=== PATIENT | male | born 1940 | race Caucasian/White ===

== ENCOUNTER 2021-01-12 12:57 | Inpatient (IN) | payer OTHER ==
[2021-01-12] MEDS ORDERED: HYOSCYAMINE SULF 0.125 MG TAB SL PRN (20:16)
[2021-01-12] MEDS ORDERED: BISACODYL E.C. 5 MG TAB PO PRN (20:31)
[2021-01-12] MEDS ORDERED: DOCUSATE NA/SENNA CONC 1 TAB PO PRN (20:31)
[2021-01-12] MEDS ORDERED: DICYCLOMINE HCL 10 MG CAP PO PRN (20:31)
[2021-01-12] MEDS ORDERED: ONDANSETRON 4 MG (ODT) TAB PO PRN (20:31)
[2021-01-12] MEDS ORDERED: TAMSULOSIN 0.4 MG SR CAP PO SCH (21:00)
[2021-01-12] MEDS: HYDROCODONE/APAP 10/325 TAB PO PRN (21:14)
[2021-01-13] MEDS ORDERED: METOPROLOL XL 50 MG TAB PO SCH (06:00)
[2021-01-13] MEDS ORDERED: METOPROLOL XL 25 MG TAB PO SCH ×2 (06:00)
[2021-01-13 06:04] LABS: Absolute Lymphocytes (CBC) 2.8 K/uL (0.7-4.9); Basophils % 0.3 % (0-1.3); Hematocrit 27.7 % (39.6-49.0); Lymphocytes % 37.8 % (15.3-44.8); MPV 9.1 fL (7.6-11.3); RBC Red Blood Cell Count 2.82 M/uL (4.33-5.43)
[2021-01-13 06:09] LABS: Urine Appearance CLEAR (Clear); Urine Bilirubin NEGATIVE (Negative); Urine Blood 2+ (Negative); Urine Color YELLOW (Yellow); Urine Glucose NEGATIVE (Negative); Urine Protein TRACE (Negative); Urine Urobilinogen 0.2 mg/dL (0.2-1.0); Urine pH 6.5 (5.0-7.0)
[2021-01-13 06:29] LABS: Albumin 2.5 g/dL (3.4-5.0); Magnesium 1.9 mg/dL (1.8-2.4); Potassium 3.8 mmol/L (3.5-5.1); Prealbumin 16.7 mg/dL (20-40)
[2021-01-13] MEDS: PANTOPRAZOLE 40MG TABLET PO SCH (06:46)
[2021-01-13 07:51] LABS: Urine Bacteria <20 /HPF (NONE SEEN)
[2021-01-13] MEDS ORDERED: FENOFIBRATE 145 MG TAB PO SCH (08:00)
[2021-01-13] MEDS: HYDROCODONE/APAP 10/325 TAB PO PRN (08:08)
[2021-01-13] MEDS: AMLODIPINE 10 MG TAB PO SCH (08:08)
--- NOTE | 2021-01-13 08:11 | R.PREADM ---
PRE-ADMISSION SCREENING FORM SCREENING DATE AND TIME 01/12/2021 18:06 (CDT) ANTICIPATED REHAB ADMISSION DATE 01/13/2021 REFERRING FACILITY [facility] REFERRAL DATE AND TIME 01/12/2021 13:08 (CDT) REFERRAL OFFICE PHONE [phone] REFERRAL ROOM# [id number] ACUTE ADMIT DATE 01/07/2021 Previous Rehabilitation(s): No. 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 Clarence Hector M.D. MR# [id number] NAME SAMMIE SLATER ADDRESS [address] [facility] [place] PHONE [facility] [id number] DATE OF 1940 AGE 80 SSN# [id number] GENDER male MARITAL STATUS ADMIT FROM 02 - [facility] PRE-HOSPITAL LIVING SETTING 01 - Home (private home/apt. board/care, assisted living, usp, transitional living) HOME TYPE AND DETAILS Type of home: single family house # of steps within the residence: 0 # of levels in the residence: 1 # of steps to enter the residence: 0 PRE-HOSPITAL LIVING WITH Family/Relatives FAMILY SUPPORT Yes PRIMARY FAMILY CONTACT NAME JOSE SLATER PRIMARY FAMILY CONTACT PHONE PRIMARY FAMILY CONTACT RELATIONSHIP Spouse PHONE PRIMARY FAMILY CONTACT ON ADM.? no IS PRIMARY FAMILY CONTACT AUTH. REP.? no 1ST EMERGENCY CONTACT JOSE SLATER 1ST CONTACT PHONE 1ST CONTACT RELATIONSHIP Spouse PHONE 1ST CONTACT ON ADM. no IS 1ST CONTACT AUTH. REP.? no PHONE 2ND CONTACT ON ADM.? no PATIENT EMPLOYMENT STATUS Retired (for age) PATIENT EMPLOYER No Employer PAYOR INFORMATION: 1ST PAYOR NAME MEDICARE 1ST PAYOR PHONE 1ST PAYOR INJURY/ILLNESS DUE TO ACCIDENT? No ANOTHER [employer] RESPONSIBLE? No PRIMARY REHAB/ACUTE DIAGNOSIS: MULTIPLE MYELOMA ONSET DATE 01/07/2021 REHAB IMPAIRMENT CATEGORY (JANIA): 20 Miscellaneous (Misc) does NOT meet 60% rule PRIMARY DIAGNOSIS-RELATED SURGERIES: N/A RISK FOR COMPLICATIONS: - N/A BACTERIAL URINARY INFECTION CHRONIC KIDNEY DISEASE COGNITIVE IMPAIRMENTS SUMMARY OF ACUTE HOSPITALIZATION: Pt. is a 80 yo Right-handed male. On 01/07/2021 he was admitted to [facility] with diagnosis MULTIPLE MYELOMA. His impairment category is Medically Complex Conditions 17 - Neoplasms (17.2). Pre-morbidly, Pt. was independent/mod-I in Locomotion, Social Cognition, Safety Awareness, Transfers Control, and Balance; and he had good Endurance, Self-Care, Communication, and Sphincter Control. Currently, he has deficits of Locomotion, Balance, Safety Awareness, Transfers Control, Self-Care, Sp hincter Control, and Endurance. Pt. is now referred to [facility] for acute in-patient rehabilitation in order to maximize patient's functional independence in activities of daily living, strength, ROM, and mobi lity. Patient has realistic goal of being discharged at assistance level 7-Ind to reside at Home with Fami ly/Relatives. PAST MEDICAL HISTORY Other cholelithiasis with obstruction (K80.81) CHRONIC CONSTIPATION DEPRESSION DISORDER OF CORONARY ARTERY GASTROESOPHAGEAL REFLUX DISEASE HYPERLIPIDEMIA HYPERTENSION LOWER URINARY TRACT SYMPTOMS MULTIPLE MYELOMA OBSTRUCTIVE SLEEP APNEA ORTHOSTATIC HYPOTENSION FALLS PAST SURGICAL HISTORY: ABDOMINAL SURGERY DISCECTOMY, ANTERIOR CERVICAL W/FUSION FINGER AMPUTATION ( FROM HORSE INJURY) LAMINECTOMY MO EGD FLEXIBLE FOREIGN BODY REMOVAL MO ERCP STENT PLACEMENT BILARY/PANCREATIC MO LLANOS W/O FACETEC FORAMOT/[facility] 04/29 VRT SEG,THORACIC- BILATERAL SPLENECTOMY,TOTAL MEDICATION ALLERGIES: DAPTOMYCIN OXYCODONE ZOLPIDEM ENVIRONMENTAL ALLERGIES: - Substance Allergies None Known - Other Allergies None Known CODE STATUS: Full code WEIGHT/HEIGHT/BMI: WEIGHT 166 lbs BMI N/A DIET: - Diet Type Regular - Diet - Solid Texture Regular - Diet - Liquid Texture Regular - Tube Feed N/A REVIEW OF SYSTEMS: - Gen Alert and awake Lying in bed No apparent distress Oriented to: person, time, and place - Vital Signs Temperature: 98.3 F SBP/DBP: 166/93 Pulse: 79 Resp: 18 Vital signs stable, afebrile - CVS RRR VITAL SIGNS Temperature: 98.3 F SBP/DBP: 166/93 Pulse: 79 Resp: 18 Vital signs stable, afebrile MEDICATIONS/TREATMENT: Other- See attached MAR (Medication Administration Record). CURRENT SPHINCTER CONTROL: Pre-hospital bladder status: unspecified # of bladder accidents in the last 7 days prior to screenin Pre-hospital bowel status: unspecified # of bowel accidents in the last 7 days prior to screenin Last Bowel Movement Date: 01/12/2021 CURRENT LOCOMOTION STATUS: distance walked 15 feet ROLLING WALKER DETAILED CURRENT FUNCTIONAL STATUS: - Bladder accident frequency: 7-Ind - No accidents in the past 7 days - Bowel accident frequency: 7-Ind - No accidents in the past 7 days - Walking score based on distance walked: 0(N/A) score based on distance walked: 1(<=50ft) - Wheelchair score based on distance traveled: 0(N/A) QI SCORES: - Self-Care A. Eating 03-Partial/moderate assistance B. Oral hygiene 03-Partial/moderate assistance C. Toileting hygiene 03-Partial/moderate assistance E. Shower/bathe self 03-Partial/moderate assistance F. Upper body dressing 04-Supervision or touching assistance G. Lower body dressing 03-Partial/moderate assistance H. Putting on/taking off footwear 88-Not attempted due to medical condition or safety concerns - Mobility A. Roll left and right 03-Partial/moderate assistance B. Sit to lying 04-Supervision or touching assistance C. Lying to sitting on side of bed 04-Supervision or touching assistance D. Sit to stand 03-Partial/moderate assistance E. Chair/rlv-vm-lfxmp transfer 03-Partial/moderate assistance F. Toilet transfer 03-Partial/moderate assistance G. Car transfer 88-Not attempted due to medical condition or safety concerns I. Walk 10 feet 03-Partial/moderate assistance J. Walk 50 feet with two turns 88-Not attempted due to medical condition or safety concerns K. Walk 150 feet 88-Not attempted due to medical condition or safety concerns L. Walking 10 feet on uneven surfaces 88-Not attempted due to medical condition or safety concerns M. 1 step (curb) 88-Not attempted due to medical condition or safety concerns N. 4 steps 88-Not attempted due to medical condition or safety concerns O. 12 steps 88-Not attempted due to medical condition or safety concerns P. Picking up object 88-Not attempted due to medical condition or safety concerns R. Wheel 50 feet with two turns 88-Not attempted due to medical condition or safety concerns S. Wheel 150 feet 88-Not attempted due to medical condition or safety concerns - Bladder and Bowel Bladder continence Bowel continence - Endurance Fair - Balance Fair - Safety Awareness Fair CURRENT FUNC. DEFICITS: Self-Care, Mobility, Endurance, Balance, and Safety Awareness CURRENT / PREVIOUS ASSISTIVE DEVICES: Rolling Walker HISTORY OF FALLS. HAS THE PATIENT HAD TWO OR MORE FALLS IN THE PAST YEAR OR ANY FALL WITH INJURY IN T HE PAST YEAR?: Yes PRIOR SURGERY. DID THE PATIENT HAVE MAJOR SURGERY DURING THE 100 DAYS PRIOR TO ADMISSION?: No THERAPY NOTES FROM ACUTE CARE: Attached. SPECIAL NEEDS: - Safety Concerns Skin breakdown precautions needed due to skin breakdown risk PRECAUTIONS: - Fall Precaution SAFTY AND FALL PATIENT NEEDS ACTIVE AND ONGOING THERAPEUTIC INTERVENTION OF MULTIPLE THERAPY DISCIPLINES, INCLUDING: - Dietary and Nutrition Adequate Nutrition. Nutritional Education. Nutritional Supplements. - Occupational Therapy Cognitive Retraining. Evaluate and Treat. Adaptive Equipment. Transfer Training. UE Strengthening. AD L Training. Visual Perceptual Training. - Speech Therapy Cognitive Training. Expressive Language Skills. Memory Strategies. Receptive Language Skills. Speech Intelligibility Training. - Physical Therapy Evaluate and Treat. Gait Training. Transfer Training. Balance Training. Mobility Training. HUEY william. PATIENT NEEDS CLOSE MEDICAL SUPERVISION BY A REHABILITATION PHYSICIAN FOR: Coordination of Treatment Team Pain Management Medical and Co-Morbidity Management PATIENT REQUIRES 24X7 REHAB NURSING FOR MEDICAL AND FUNCTIONAL MGT. OF THE FOLLOWING DEFICITS: Disease Management Medication Management Patient/Family Education Providing Safe Environment PATIENT REQUIRES INTENSIVE, COORDINATED INTERDISCIPLINARY APPROACH TO REHAB: Arranging Home Equipment/Services Discharge Planning Family Intervention/Training Optical Goods Worker/Case Management PATIENT REHAB POTENTIAL: Tania SLATER is able and expected to receive 3 hours of individualized therapy daily on at least 5 of every 7 days Tania SLATER's prognosis for significant practical improvement within a reasonable period of time martine ears Good Expected level of measurable improvement will be of a practical value to Tania SLATER's functional ca pacity or adaptations to impairments Has a viable Discharge Plan Medically appropriate; condition is sufficiently stable to participate in intensive rehab program DISCHARGE PLAN: - Estimated Length of Stay (days) 13. - Consensus on plan Discharge plan has been discussed with primary caregiver. Patient/Family is in agreement with the christina n. Primary caregiver is in agreement with the plan. - Patient/Family Goals Return home independently. - Planned Living Setting Upon Discharge Home, to live with Family/Relatives. Transitional Living. RECOMMENDED CARE LEVEL: IRF RECOMMENDATION DETAILS: Recommended Admission to Comprehensive Rehabilitation Program to Increase Functional Isabela SCREENER'S COMPLETENESS CONFIRMATION: - Screening Confirmation The patient data collection on this preadmission screening form is finished PHYSICIANS REVIEW AND ADMISSION DETERMINATION Admit - Based on my review of the Pre-Admission Screening results, in my medical judgment and experie nce, I concur with the findings and recommend admission to [facility], as this patient requires an IRF level of care. SIGNATURE PANEL: [place] - [electronically] signed by Doc Inman on 01/12/2021 at 15:23 (CDT) [place] - [electronically] signed by Mauro Flores PT on 01/12/2021 at 15:49 (CDT) Physician Reviewer - [electronically] signed by Dr. Clarence Hector M.D. on 01/13/2021 at 08:10 (CDT )
[2021-01-13] MEDS: FENOFIBRATE 160 MG TAB PO SCH (08:18)
[2021-01-13] MEDS: OXYBUTYNIN CHLORIDE 5 MG TAB PO SCH (08:18)
[2021-01-13] MEDS: MONTELUKAST 10 MG TAB PO SCH (08:18)
[2021-01-13] MEDS: ACYCLOVIR 400 MG TABLET PO SCH ×2 (08:19→20:00)
[2021-01-13] MEDS: CYANOCOBALAMIN 1,000 MCG TAB PO SCH (08:19)
[2021-01-13] MEDS: ASPIRIN 81 MG CHEWABLE TABLET PO SCH (08:19)
[2021-01-13] MEDS: GABAPENTIN 300 MG CAP PO SCH ×2 (08:19→20:10)
[2021-01-13] MEDS: THIAMINE HCL 100 MG TABLET PO SCH (08:19)
[2021-01-13] MEDS: APIXABAN 2.5 MG TABLET PO SCH ×2 (09:58→20:10)
[2021-01-13] MEDS: LIDOCAINE 4% PATCH TOP SCH (09:59)
[2021-01-13] MEDS: OCUVITE (VIT A,C & E/LUTEIN/MINERAL) TABLET PO SCH ×2 (10:16→20:37)
[2021-01-13] MEDS: TRAMADOL HCL 50 MG TAB PO PRN ×2 (12:06→20:11)
--- NOTE | 2021-01-13 16:51 | R.HP ---
HISTORY AND PHYSICAL FACILITY: [facility] ENCOUNTER DATE AND TIME: 01/13/2021 16:47 (CDT) MR#: [id number] NAME SAMMIE SLATER ADDRESS: [address] [place] [address] [address] CITY: [place] [address] [id number] PHONE: DATE OF : 1940 AGE: 80 SSN# [id number] GENDER: Male MARITAL STATUS PRE-HOSPITAL LIVING SETTING 01 - Home (private home/apt. board/care, assisted living, skilled nursing, transitional living) PRE-HOSPITAL LIVING WITH Family/Relatives ENCOUNTER PHYSICIAN: Dr. Clarence Hector M.D. REFERRING DOCTOR: BENIGNO HASSAN MD DATE OF ADMISSION: 01/12/2021 20:04 (CDT) REFERRING FACILITY [facility] PRIMARY CARE PHYSICIAN BENIGNO HASSAN MD HOME TYPE AND DETAILS: Type of home: single family house # of steps within the residence: 0 # of levels in the residence: 1 # of steps to enter the residence: 0 ONSET DATE: 01/07/2021 PRIMARY DIAGNOSIS-RELATED SURGERIES: N/A Multiple myeloma, debility HISTORY OF PRESENT ILLNESS (HPI): Pt. is a 80 yo Right-handed male. On 01/07/2021 he was admitted to [facility] with diagnosis MULTIPLE MYELOMA. His impairment category is Medically Complex Conditions 17 - Neoplasms (17.2). Pre-morbidly, Pt. was independent/mod-I in Locomotion, Social Cognition, Safety Awareness, Transfers Control, and Balance; and he had good Endurance, Self-Care, Communication, and Sphincter Control. Currently, he has deficits of Locomotion, Balance, Safety Awareness, Transfers Control, Self-Care, Sp hincter Control, and Endurance. Pt. is now referred to [facility] for acute in-patient rehabilitation in order to maximize patient's functional independence in activities of daily living, strength, ROM, and mobi lity. Patient has realistic goal of being discharged at assistance level 7-Ind to reside at Home with Fami ly/Relatives. MEDICATION ALLERGIES: DAPTOMYCIN OXYCODONE ZOLPIDEM ENVIRONMENTAL ALLERGIES: - Substance Allergies None Known - Other Allergies None Known PAST MEDICAL HISTORY: Other cholelithiasis with obstruction (K80.81) CHRONIC CONSTIPATION DEPRESSION DISORDER OF CORONARY ARTERY GASTROESOPHAGEAL REFLUX DISEASE HYPERLIPIDEMIA HYPERTENSION LOWER URINARY TRACT SYMPTOMS MULTIPLE MYELOMA OBSTRUCTIVE SLEEP APNEA ORTHOSTATIC HYPOTENSION FALLS PAST SURGICAL HISTORY: ABDOMINAL SURGERY DISCECTOMY, ANTERIOR CERVICAL W/FUSION FINGER AMPUTATION ( FROM HORSE INJURY) LAMINECTOMY [place] EGD FLEXIBLE FOREIGN BODY REMOVAL [place] ERCP STENT PLACEMENT BILARY/PANCREATIC [place] LLANOS W/O FACETEC FORAMOT/[facility] / VRT SEG,THORACIC- BILATERAL SPLENECTOMY,TOTAL SOCIAL HISTORY: - Home Living Family/Relatives REVIEW OF SYSTEMS: - Gen No Chills Fatigue No Fever - Eyes No Double Vision No itchiness - ENMT No Difficulty Swallowing - CVS No Chest Discomfort No Chest Pain No Fatigue No Weight Gain - Resp No Cough Shortness of Breath - GI Continent No Abdominal Pain No Constipation No Diarrhea - Continent No Kidney Pain No Painful Urination No Urinary Urgency - MSK No Joint Pain Muscle Cramps Stiffness - Skin No Itching No Rash No Suspicious Lesions - Neuro Coordination Difficulty No Difficulty with Concentration No Memory Loss No Seizures Weakness - Psych No Anxiety No Depression No HIV Exposure No Persistent Infections No Seasonal Allergies - Endo No Cold/Heat Intolerance No Excessive Hunger No Excessive Thirst No Excessive Urination PHYSICAL EXAM - Gen Alert and awake Lying in bed No apparent distress Oriented to: person, time, and place - Skin No skin breakdown. No abnormalities - Eyes No abnormalities - ENMT No abnormalities - Neck No abnormalities - CVS RRR - Chest No abnormalities - Resp Clear to auscultation - Abd Soft - GI Non distended Deferred - No abnormalities - Ext No significant edema - MSK 4+/5 weakness in both lower extremities. - Neuro No focal deficits - Psych No abnormalities VITAL SIGNS Temperature: 98.8 F SBP/DBP: 145/75 Pulse: 66 Resp: 16 NURSING: - Shower allowing shower PRECAUTIONS: - Fall Precaution SAFTY AND FALL ACTIVITIES OOB only with supervision QI SCORES: - Self-Care A. Eating 03-Partial/moderate assistance B. Oral hygiene 03-Partial/moderate assistance C. Toileting hygiene 03-Partial/moderate assistance E. Shower/bathe self 03-Partial/moderate assistance F. Upper body dressing 04-Supervision or touching assistance G. Lower body dressing 03-Partial/moderate assistance H. Putting on/taking off footwear 88-Not attempted due to medical condition or safety concerns - Mobility A. Roll left and right 03-Partial/moderate assistance B. Sit to lying 04-Supervision or touching assistance C. Lying to sitting on side of bed 04-Supervision or touching assistance D. Sit to stand 03-Partial/moderate assistance E. Chair/qmr-wx-csyic transfer 03-Partial/moderate assistance F. Toilet transfer 03-Partial/moderate assistance G. Car transfer 88-Not attempted due to medical condition or safety concerns I. Walk 10 feet 03-Partial/moderate assistance J. Walk 50 feet with two turns 88-Not attempted due to medical condition or safety concerns K. Walk 150 feet 88-Not attempted due to medical condition or safety concerns L. Walking 10 feet on uneven surfaces 88-Not attempted due to medical condition or safety concerns M. 1 step (curb) 88-Not attempted due to medical condition or safety concerns N. 4 steps 88-Not attempted due to medical condition or safety concerns O. 12 steps 88-Not attempted due to medical condition or safety concerns P. Picking up object 88-Not attempted due to medical condition or safety concerns R. Wheel 50 feet with two turns 88-Not attempted due to medical condition or safety concerns S. Wheel 150 feet 88-Not attempted due to medical condition or safety concerns - Bladder and Bowel Bladder continence Bowel continence - Endurance Fair - Balance Fair - Safety Awareness Fair CURRENT FUNC. DEFICITS: Self-Care, Mobility, Endurance, Balance, and Safety Awareness MEDICATIONS: - Other See attached MAR (Medication Administration Record) ASSESSMENT: Pt. is a 80 yo Right-handed male.On 01/07/2021 he was admitted to [facility] with diagnosis MULTIPLE MYELOMA.His impairment category is Medically Complex Conditions 17 - Neoplasms (17.2).Pre-morbidly, Pt. was independent/mod-I in Locomotion, Social Cognition, Safety Awareness, Transfers Control, and Balance; and he had good Endurance, Self-Care, Communication, and Sphincter Control.Currently, he has deficits of Locomotion, Balance, Safety Awareness, Transfers Control, Self-Care, Sphincter Control, and Endurance.Pt. is now referred to [facility] for acute in-patient rehabilit ation in order to maximize patient's functional independence in activities of daily living, strength, ROM, and mobility.- Rehab Goal Patient has realistic goal of being discharged at assistance level 7-Ind to reside at Home with Fami ly/Relatives. - Physical Therapy Gait dysfunction - to improve, our physical therapists will perform initial evaluation of pt's status upon admission and devise an individualized program for Gait Training, and Wheel Chair mobility Inability to transfer - to improve, our physical therapists will perform initial evaluation of pt's s tatus upon admission and devise an individualized program for Bed mobility Need for home safety evaluation - to improve, our physical therapists will perform initial evaluation of pt's status upon admission and devise an individualized program for Home Evaluation Need in caregiver upon discharge - to improve, our physical therapists will perform initial evaluatio n of pt's status upon admission and devise an individualized program for Caregiver Training New precaution - to improve, our physical therapists will perform initial evaluation of pt's status u leeann admission and devise an individualized program for Patient precaution education Edema - to improve, our physical therapists will perform initial evaluation of pt's status upon admi ssion and devise an individualized program for Elevation Training, and Lymphedema Therapy Poor balance - to improve, our physical therapists will perform initial evaluation of pt's status upo n admission and devise an individualized program for Balance Training Poor endurance - to improve, our physical therapists will perform initial evaluation of pt's status u leeann admission and devise an individualized program for Endurance Training Weakness - to improve, our physical therapists will perform initial evaluation of pt's status upon ad mission and devise an individualized program for Aquatic Therapy, Neuromuscular Reeducation, and Stre ngthening Achieving independence - to improve, our physical therapists will perform initial evaluation of pt's status upon admission and devise an individualized program for Community Reintegration Activities - Occupational Therapy ADL deficits - to improve, our occupation therapists will perform initial evaluation of pt's status u leeann admission and devise an individualized program for Bathing, Bed mobility, Community Reintegration , Cooking, Dressing, Eating, Fine Motor Skills, Grooming, Homemaking, Kitchen Mobility, Laundry, [place] ent Education, Safety Awareness, Splinting - Positioning, Transfers(Toilet, Tub, Shower), and Wheel C hair Management Need for career guidance technician - to improve, our occupation therapists will perform initial evaluation of pt's s tatus upon admission and devise an individualized program for Caregiver Training Weakness - to improve, our occupation therapists will perform initial evaluation of pt's status upon admission and devise an individualized program for Aquatic Therapy, Balance, Endurance, UE ROM, and U E strengthening MEDICAL PLAN: - Diet Type Start Regular - Diet - Liquid Texture Start Regular - Tube Feed Start N/A - Fall Precaution SAFTY AND FALL - Other See attached MAR (Medication Administration Record) - Diet - Solid Texture Regular - Shower shower DISCHARGE PLAN: - Estimated Length of Stay (days) 13. - Consensus on plan Discharge plan has been discussed with primary caregiver. Patient/Family is in agreement with the christina n. Primary caregiver is in agreement with the plan. - Patient/Family Goals Return home independently. - Planned Living Setting Upon Discharge Home, to live with Family/Relatives. Transitional Living. SIGNATURE PANEL: (CDT)
--- NOTE | 2021-01-13 16:53 | PAPE ---
POST ADMISSION PHYSICIAN EVALUATION PATIENT: [facility] MR# [id number] REFERRING DOCTOR BENIGNO HASSAN MD PRIMARY CARE PHYSICIAN BENIGNO HASSAN MD EVALUATION DATE AND TIME 01/13/2021 16:51 (CDT) NAME SAMMIE SLATER DATE OF 1940 AGE 80 PHONE N# [id number] GENDER male EVALUATING PHYSICIAN Dr. Clarence Hector M.D. ADMISSION DIAGNOSIS: MULTIPLE MYELOMA ONSET DATE 01/07/2021 POST-ADMISSION FUNCTIONAL/MEDICAL STATUS: - Bladder Same accident frequency: 7-Ind - No accidents in the past 7 days - Bowel Same accident frequency: 7-Ind - No accidents in the past 7 days - Walking Same score based on distance walked: 0(N/A) Same score based on distance walked: 1(<=50ft) - Wheelchair Same score based on distance traveled: 0(N/A) STATUS CHANGE EVALUATION: No change in Functional or Medical Status is identified compared with Pre-Admission screening. PATIENT NEEDS CLOSE MEDICAL SUPERVISION BY A REHABILITATION PHYSICIAN FOR: Coordination of Treatment Team Pain Management Medical and Co-Morbidity Management PATIENT REQUIRES 24X7 REHAB NURSING FOR MEDICAL AND FUNCTIONAL MGT. OF THE FOLLOWING DEFICITS: Disease Management Medication Management Patient/Family Education Providing Safe Environment PATIENT REQUIRES INTENSIVE, COORDINATED INTERDISCIPLINARY APPROACH TO REHAB: Arranging Home Equipment/Services Discharge Planning Family Intervention/Training Licensed Nuclear Control Room Operator/Case Management LIST OF IDENTIFIED AND POTENTIAL PROBLEMS: Alteration in leisure activities Bladder, Incontinence Bowel, Incontinence Infection, Actual or Potential Mobility Impaired Pain, Alteration in Comfort Self Care Deficit Skin Integrity, Actual or Potential Urinary Tract Infection (UTI), Actual or Potential RISK FOR COMPLICATIONS - N/A BACTERIAL URINARY INFECTION. CHRONIC KIDNEY DISEASE. COGNITIVE IMPAIRMENTS. PATIENT COULD BE AT RISK FOR COMPLICATIONS FROM ADVERSE MEDICAL CONDITIONS DUE TO HIS/HER COMORBIDITI ES AND THE RIGORS OF THE INTENSIVE REHABILLITATION PROGRAM. METHODS OR INTERVENTIONS TO AVOID COMPLIC ATIONS INCLUDE: - Infection Clinical staff to assess and manage the signs and symptoms of infection including fever, redness, war mth, etc. - Urinary Tract Infection - Falls Patient will be evaluated for Fall Precautions and will be placed on Fall Precautions as indicated pe r protocol. - Skin Breakdown Nursing will assess skin daily using assessment tool and will place on Skin Breakdown Precautions as indicated per protocol. - Pain Clinical staff may employ non-medication methods such as massage, distraction, decrease stimulus, etc . as needed. Clinical staff will assess patient's pain level every shift per protocol to assess and e nsure pain management effectiveness. Medications will be given and the pain level re-assessed. PRELIMINARY PLAN OF CARE: - Physical Therapy Patient needs Physical Therapy for a daily minimum of 1.5 hours at least 5 out of 7 days, to improve: Mobility, Strengthening, Transfers, Stretching, ROM, Endurance, Ability to manage stairs, Gait, and Balance. - Speech Therapy Patient needs Speech Therapy for a daily minimum of 0.5 hours at least 5 out of 7 days, to improve: S wallowing, Cognition, Language Skills, and Compensatory Strategies. - Rehabilitation Nursing Patient requires 24x7 Rehabilitation Nursing for: Pain Issues, Identifying and preventing risk factor s, Monitoring and reporting current medical conditions, Assisting with ambulation and transfer, Mallika ting with all ADL-s, Teaching patients about disease process and medications, Family teaching, Provid ing safe environment, Bowel and Bladder Issues, Skin Integrity, and Medication Management. Patient needs Licensed Nuclear Control Room Operator and/or Case Management for: Discharge Planning, Arranging Home Equipmen t or Services, and Family Interventions. - Dietary and Nutrition Services Patient needs Dietary and Nutrition Services for: Adequate Nutrition, Nutritional Supplements, and Nu tritional Education. - Occupational Therapy Patient needs Occupational Therapy for a daily minimum of 1.5 hours at least 5 out of 7 days, to impr ove Activities of Daily Living, including: Eating, Grooming, Bathing, Dressing, Toileting, Toilet Tra nsfers, Community Reintegration, Higher functional activities, Adaptive Equipment, Splinting, Househo ld Tasks, and Other activities as determined. QI SCORES: - Self-Care A. Eating 03-Partial/moderate assistance B. Oral hygiene 03-Partial/moderate assistance C. Toileting hygiene 03-Partial/moderate assistance E. Shower/bathe self 03-Partial/moderate assistance F. Upper body dressing 04-Supervision or touching assistance G. Lower body dressing 03-Partial/moderate assistance H. Putting on/taking off footwear 88-Not attempted due to medical condition or safety concerns - Mobility A. Roll left and right 03-Partial/moderate assistance B. Sit to lying 04-Supervision or touching assistance C. Lying to sitting on side of bed 04-Supervision or touching assistance D. Sit to stand 03-Partial/moderate assistance E. Chair/[id number]-[id number] transfer 03-Partial/moderate assistance F. Toilet transfer 03-Partial/moderate assistance G. Car transfer 88-Not attempted due to medical condition or safety concerns I. Walk 10 feet 03-Partial/moderate assistance J. Walk 50 feet with two turns 88-Not attempted due to medical condition or safety concerns K. Walk 150 feet 88-Not attempted due to medical condition or safety concerns L. Walking 10 feet on uneven surfaces 88-Not attempted due to medical condition or safety concerns M. 1 step (curb) 88-Not attempted due to medical condition or safety concerns N. 4 steps 88-Not attempted due to medical condition or safety concerns O. 12 steps 88-Not attempted due to medical condition or safety concerns P. Picking up object 88-Not attempted due to medical condition or safety concerns R. Wheel 50 feet with two turns 88-Not attempted due to medical condition or safety concerns S. Wheel 150 feet 88-Not attempted due to medical condition or safety concerns - Bladder and Bowel Bladder continence Bowel continence - Endurance Fair - Balance Fair - Safety Awareness Fair POTENTIAL FUNCTIONAL GOALS FOR PATIENT TO ACHIEVE BY DISCHARGE: - Safety Precaution Patient will remain free from falls or injury at time of discharge. - Bed Mobility Patient will perform bed mobility at 4-Marisol level of assistance. - Transfers Patient will complete transfers from bed to chair at 4-Marisol level of assistance. - Mobility Patient will ambulate 150 ft with 4-Marisol level of assistance with RW. PATIENT REHAB POTENTIAL Tania SLATER is able and expected to receive 3 hours of individualized therapy daily on at least 5 of every 7 days Tania SLATER's prognosis for significant practical improvement within a reasonable period of time martine ears Good Expected level of measurable improvement will be of a practical value to Tania SLATER's functional ca pacity or adaptations to impairments Has a viable Discharge Plan Medically appropriate; condition is sufficiently stable to participate in intensive rehab program DISCHARGE PLAN: - Estimated Length of Stay (days) 13. - Consensus on plan Discharge plan has been discussed with primary caregiver. Patient/Family is in agreement with the christina n. Primary caregiver is in agreement with the plan. - Patient/Family Goals Return home independently. - Planned Living Setting Upon Discharge Home, to live with Family/Relatives. Transitional Living. CONCLUSION ON REHABILITATION NECESSITY: I have evaluated patient's pre-admission functional status and, comparing it to the patient's post-ad mission functional status now, I conclude that the pre-admission assessment was accurate. Patient's c ondition on admission supports the medical necessity of admission to IRF. It is safe to proceed with patient's therapy program. SIGNATURE PANEL: (CDT)
[2021-01-13] MEDS: METOPROLOL XL 25 MG TAB PO SCH (17:19)
[2021-01-13] MEDS: ENSURE HIGH PROTEIN 237 ML CAN PO SCH (20:00)
[2021-01-13] MEDS: CRANBERRY FRUIT EXTRACT 400 MG CAP PO SCH (20:10)
[2021-01-13] MEDS: MELATONIN 3 MG TABLET PO PRN (20:12)
[2021-01-13] MEDS: TAMSULOSIN 0.4 MG SR CAP PO SCH (20:12)
[2021-01-14] MEDS: METOPROLOL XL 25 MG TAB PO SCH ×2 (04:54→17:10)
[2021-01-14] MEDS: PANTOPRAZOLE 40MG TABLET PO SCH (06:25)
[2021-01-14] MEDS: LIDOCAINE 4% PATCH TOP SCH (06:59)
[2021-01-14] MEDS: CRANBERRY FRUIT EXTRACT 400 MG CAP PO SCH ×2 (08:12→19:15)
[2021-01-14] MEDS: GABAPENTIN 300 MG CAP PO SCH ×2 (08:12→19:15)
[2021-01-14] MEDS: FENOFIBRATE 160 MG TAB PO SCH (08:12)
[2021-01-14] MEDS: THIAMINE HCL 100 MG TABLET PO SCH (08:13)
[2021-01-14] MEDS: ASPIRIN 81 MG CHEWABLE TABLET PO SCH (08:13)
[2021-01-14] MEDS: APIXABAN 2.5 MG TABLET PO SCH ×2 (08:13→19:15)
[2021-01-14] MEDS: ACYCLOVIR 400 MG TABLET PO SCH ×2 (08:13→19:15)
[2021-01-14] MEDS: CYANOCOBALAMIN 1,000 MCG TAB PO SCH (08:13)
[2021-01-14] MEDS: AMLODIPINE 10 MG TAB PO SCH (08:13)
[2021-01-14] MEDS: OXYBUTYNIN CHLORIDE 5 MG TAB PO SCH (08:13)
[2021-01-14] MEDS: TRAMADOL HCL 50 MG TAB PO PRN ×2 (08:15→19:16)
[2021-01-14] MEDS: ENSURE HIGH PROTEIN 237 ML CAN PO SCH ×2 (08:16→19:18)
[2021-01-14] MEDS: MONTELUKAST 10 MG TAB PO SCH (08:17)
[2021-01-14] MEDS: OCUVITE (VIT A,C & E/LUTEIN/MINERAL) TABLET PO SCH ×2 (09:17→19:15)
[2021-01-14] MEDS: TAMSULOSIN 0.4 MG SR CAP PO SCH (19:15)
[2021-01-14] MEDS: MELATONIN 3 MG TABLET PO PRN (19:15)
[2021-01-15] MEDS: METOPROLOL XL 25 MG TAB PO SCH ×2 (05:11→17:05)
[2021-01-15] MEDS: PANTOPRAZOLE 40MG TABLET PO SCH (06:58)
[2021-01-15] MEDS: GABAPENTIN 300 MG CAP PO SCH ×3 (08:00→21:54)
[2021-01-15] MEDS: LIDOCAINE 4% PATCH TOP SCH (08:00)
[2021-01-15] MEDS: CRANBERRY FRUIT EXTRACT 400 MG CAP PO SCH ×2 (09:11→21:53)
[2021-01-15] MEDS: FENOFIBRATE 160 MG TAB PO SCH (09:12)
[2021-01-15] MEDS: MONTELUKAST 10 MG TAB PO SCH (09:12)
[2021-01-15] MEDS: OXYBUTYNIN CHLORIDE 5 MG TAB PO SCH (09:12)
[2021-01-15] MEDS: ASPIRIN 81 MG CHEWABLE TABLET PO SCH (09:12)
[2021-01-15] MEDS: AMLODIPINE 10 MG TAB PO SCH (09:12)
[2021-01-15] MEDS: ACYCLOVIR 400 MG TABLET PO SCH ×2 (09:12→21:54)
[2021-01-15] MEDS: APIXABAN 2.5 MG TABLET PO SCH ×2 (09:13→21:53)
[2021-01-15] MEDS: CYANOCOBALAMIN 1,000 MCG TAB PO SCH (09:13)
[2021-01-15] MEDS: THIAMINE HCL 100 MG TABLET PO SCH (09:13)
[2021-01-15] MEDS ORDERED: GABAPENTIN 100 MG CAP ONE (09:35)
[2021-01-15] MEDS: TRAMADOL HCL 50 MG TAB PO PRN ×2 (10:02→21:54)
[2021-01-15] MEDS: OCUVITE (VIT A,C & E/LUTEIN/MINERAL) TABLET PO SCH ×2 (10:03→21:54)
[2021-01-15] MEDS: ENSURE HIGH PROTEIN 237 ML CAN PO SCH ×2 (11:31→21:55)
--- NOTE | 2021-01-15 17:21 | R.PN ---
PROGRESS NOTES ENCOUNTER DATE AND TIME: 01/15/2021 17:14 (CDT) NAME SAMMIE SLATER DATE OF : 1940 DATE OF ADMISSION: 01/12/2021 20:04 (CDT) MULTIPLE MYELOMACHIEF COMPLAINT: Debility and multiple myeloma SUBJECTIVE: Pt denied any depression. Pt denied any Shortness of Breath. Ambulated 500' with standby assistance using a rolling walker. VITAL SIGNS Temperature: 99.2 F SBP/DBP: 160/80 Pulse: 70 Resp: 16 MEDICATION ALLERGIES: DAPTOMYCIN OXYCODONE ZOLPIDEM ENVIRONMENTAL ALLERGIES: - Substance Allergies None Known - Other Allergies None Known NURSING: - Shower allowing shower PRECAUTIONS: - Fall Precaution SAFTY AND FALL ACTIVITIES OOB only with supervision THERAPIES: - Dietary and Nutrition Adequate Nutrition. Nutritional Education. Nutritional Supplements. - Occupational Therapy Cognitive Retraining. Evaluate and Treat. Adaptive Equipment. Transfer Training. UE Strengthening. AD L Training. Visual Perceptual Training. - Speech Therapy Cognitive Training. Expressive Language Skills. Memory Strategies. Receptive Language Skills. Speech Intelligibility Training. - Physical Therapy Evaluate and Treat. Gait Training. Transfer Training. Balance Training. Mobility Training. HUEY william. PHYSICAL EXAM - Gen Alert and awake Lying in bed No apparent distress Oriented to: person, time, and place - Skin No skin breakdown. No abnormalities - Eyes No abnormalities - ENMT No abnormalities - Neck No abnormalities - CVS RRR - Chest No abnormalities - Resp Clear to auscultation - Abd Soft - GI Non distended Deferred - No abnormalities - Ext No significant edema - MSK 4+/5 weakness in both lower extremities. - Neuro No focal deficits - Psych No abnormalities ASSESSMENT: Pt. is a 80 yo Right-handed male.On 01/07/2021 he was admitted to [facility] with diagnosis MULTIPLE MYELOMA.His impairment category is Medically Complex Conditions 17 - Neoplasms (17.2).Pre-morbidly, Pt. was independent/mod-I in Locomotion, Social Cognition, Safety Awareness, Transfers Control, and Balance; and he had good Endurance, Self-Care, Communication, and Sphincter Control.Currently, he has deficits of Locomotion, Balance, Safety Awareness, Transfers Control, Self-Care, Sphincter Control, and Endurance.Pt. is now referred to [facility] for acute in-patient rehabilit ation in order to maximize patient's functional independence in activities of daily living, strength, ROM, and mobility.- Rehab Goal Patient has realistic goal of being discharged at assistance level 7-Ind to reside at Home with Fami ly/Relatives. MDM/PLAN: - Physical Therapy Gait dysfunction - to improve, our physical therapists will perform initial evaluation of pt's statu s upon admission and devise an individualized program for Gait Training, and Wheel Chair mobility Inability to transfer - to improve, our physical therapists will perform initial evaluation of pt's status upon admission and devise an individualized program for Bed mobility Need for home safety evaluation - to improve, our physical therapists will perform initial evaluatio n of pt's status upon admission and devise an individualized program for Home Evaluation Need in caregiver upon discharge - to improve, our physical therapists will perform initial evaluati on of pt's status upon admission and devise an individualized program for Caregiver Training New precaution - to improve, our physical therapists will perform initial evaluation of pt's status upon admission and devise an individualized program for Patient precaution education Edema - to improve, our physical therapists will perform initial evaluation of pt's status upon admis matthew and devise an individualized program for Elevation Training, and Lymphedema Therapy Poor balance - to improve, our physical therapists will perform initial evaluation of pt's status up on admission and devise an individualized program for Balance Training Poor endurance - to improve, our physical therapists will perform initial evaluation of pt's status upon admission and devise an individualized program for Endurance Training Weakness - to improve, our physical therapists will perform initial evaluation of pt's status upon a dmission and devise an individualized program for Aquatic Therapy, Neuromuscular Reeducation, and Str engthening Achieving independence - to improve, our physical therapists will perform initial evaluation of pt's status upon admission and devise an individualized program for Community Reintegration Activities - Occupational Therapy ADL deficits - to improve, our occupation therapists will perform initial evaluation of pt's status upon admission and devise an individualized program for Bathing, Bed mobility, Community Reintegratio n, Cooking, Dressing, Eating, Fine Motor Skills, Grooming, Homemaking, Kitchen Mobility, Laundry, Pat ient Education, Safety Awareness, Splinting - Positioning, Transfers(Toilet, Tub, Shower), and Wheel Chair Management Need for patient care technician - to improve, our occupation therapists will perform initial evaluation of pt's status upon admission and devise an individualized program for Caregiver Training Weakness - to improve, our occupation therapists will perform initial evaluation of pt's status upon admission and devise an individualized program for Aquatic Therapy, Balance, Endurance, UE ROM, and UE strengthening - Other See attached MAR (Medication Administration Record) - Diet Type Continue Regular - Diet - Liquid Texture Continue Regular - Tube Feed Continue N/A - Fall Precaution SAFTY AND FALL - Diet - Solid Texture Continue Regular - Shower allowing shower FUNCTIONAL STATUS: UPDATED AT WEEKLY TEAM CONFERENCE - Bladder Same accident frequency: 7-Ind - No accidents in the past 7 days - Bowel Same accident frequency: 7-Ind - No accidents in the past 7 days - Walking Same score based on distance walked: 0(N/A) Same score based on distance walked: 1(<=50ft) - Wheelchair Same score based on distance traveled: 0(N/A) FUNCTIONAL STATUS: - Self-Care A. Eating Ind B. Grooming sup C. Bathing Marisol D. Dressing - Upper Marisol E. Dressing - Lower modA F. Toileting Marisol - Sphincter Control G. Bladder control sup H. Bowel control sup - Transfers Control I. Bed/Chair/Wheelchair Marisol J. Toilet Marisol K. Tub/Shower Marisol - Locomotion L. Walk/Wheelchair (B) modA M. Stairs ADNO - Communication N. Comprehension (B) sup O. Expression (B) sup - Social Cognition P. Social Interaction Sofia Q. Problem Solving sup R. Memory sup - Endurance Fair - Balance Fair - Safety Awareness Fair QI SCORES: - Self-Care A. Eating 03-Partial/moderate assistance B. Oral hygiene 03-Partial/moderate assistance C. Toileting hygiene 03-Partial/moderate assistance E. Shower/bathe self 03-Partial/moderate assistance F. Upper body dressing 04-Supervision or touching assistance G. Lower body dressing 03-Partial/moderate assistance H. Putting on/taking off footwear 88-Not attempted due to medical condition or safety concerns - Mobility A. Roll left and right 03-Partial/moderate assistance B. Sit to lying 04-Supervision or touching assistance C. Lying to sitting on side of bed 04-Supervision or touching assistance D. Sit to stand 03-Partial/moderate assistance E. Chair/[id number] transfer 03-Partial/moderate assistance F. Toilet transfer 03-Partial/moderate assistance G. Car transfer 88-Not attempted due to medical condition or safety concerns I. Walk 10 feet 03-Partial/moderate assistance J. Walk 50 feet with two turns 88-Not attempted due to medical condition or safety concerns K. Walk 150 feet 88-Not attempted due to medical condition or safety concerns L. Walking 10 feet on uneven surfaces 88-Not attempted due to medical condition or safety concerns M. 1 step (curb) 88-Not attempted due to medical condition or safety concerns N. 4 steps 88-Not attempted due to medical condition or safety concerns O. 12 steps 88-Not attempted due to medical condition or safety concerns P. Picking up object 88-Not attempted due to medical condition or safety concerns R. Wheel 50 feet with two turns 88-Not attempted due to medical condition or safety concerns S. Wheel 150 feet 88-Not attempted due to medical condition or safety concerns - Bladder and Bowel Bladder continence Bowel continence - Endurance Fair - Balance Fair - Safety Awareness Fair [facility]. DEFICITS: Self-Care, Mobility, Endurance, Balance, and Safety Awareness SIGNATURE PANEL: (CDT)
[2021-01-15] MEDS: TAMSULOSIN 0.4 MG SR CAP PO SCH (21:54)
[2021-01-15] MEDS: MELATONIN 3 MG TABLET PO PRN (21:55)
[2021-01-16] MEDS: METOPROLOL XL 25 MG TAB PO SCH ×2 (05:41→16:59)
[2021-01-16] MEDS: PANTOPRAZOLE 40MG TABLET PO SCH (07:22)
[2021-01-16] MEDS ORDERED: GABAPENTIN 100 MG CAP ONE (08:10)
[2021-01-16] MEDS: OCUVITE (VIT A,C & E/LUTEIN/MINERAL) TABLET PO SCH ×2 (08:23→21:40)
[2021-01-16] MEDS: AMLODIPINE 10 MG TAB PO SCH (08:24)
[2021-01-16] MEDS: CRANBERRY FRUIT EXTRACT 400 MG CAP PO SCH ×2 (08:24→21:40)
[2021-01-16] MEDS: FENOFIBRATE 160 MG TAB PO SCH (08:24)
[2021-01-16] MEDS: THIAMINE HCL 100 MG TABLET PO SCH (08:25)
[2021-01-16] MEDS: OXYBUTYNIN CHLORIDE 5 MG TAB PO SCH (08:25)
[2021-01-16] MEDS: LIDOCAINE 4% PATCH TOP SCH (08:26)
[2021-01-16] MEDS: ASPIRIN 81 MG CHEWABLE TABLET PO SCH (08:27)
[2021-01-16] MEDS: ACYCLOVIR 400 MG TABLET PO SCH ×2 (08:28→21:40)
[2021-01-16] MEDS: MONTELUKAST 10 MG TAB PO SCH (08:28)
[2021-01-16] MEDS: CYANOCOBALAMIN 1,000 MCG TAB PO SCH (08:29)
[2021-01-16] MEDS: TRAMADOL HCL 50 MG TAB PO PRN ×3 (08:31→21:43)
[2021-01-16] MEDS: ENSURE HIGH PROTEIN 237 ML CAN PO SCH ×2 (08:32→21:41)
[2021-01-16] MEDS: GABAPENTIN 300 MG CAP PO SCH ×2 (08:33→21:40)
[2021-01-16] MEDS: APIXABAN 2.5 MG TABLET PO SCH ×2 (10:53→21:40)
--- NOTE | 2021-01-16 18:51 | R.PN ---
PROGRESS NOTES ENCOUNTER DATE AND TIME: 01/16/2021 18:48 (CDT) NAME SAMMIE SLATER DATE OF : 1940 DATE OF ADMISSION: 01/12/2021 20:04 (CDT) MULTIPLE MYELOMACHIEF COMPLAINT: Debility and multiple myeloma SUBJECTIVE: Pt denied any depression. Pt denied any Shortness of Breath. Ambulated 850' with standby assistance using a rolling walker. Up and down 12 steps with contact guar d assistance. Hgb is mildly low at 9.2, prealbumin is mildly low at 16.7, UA shows 1+ esterase, 2+ blood, 5-10 WBCs . VITAL SIGNS Temperature: 98.0 F SBP/DBP: 142/64 Pulse: 79 Resp: 16 MEDICATION ALLERGIES: DAPTOMYCIN OXYCODONE ZOLPIDEM ENVIRONMENTAL ALLERGIES: - Substance Allergies None Known - Other Allergies None Known NURSING: - Shower allowing shower PRECAUTIONS: - Fall Precaution SAFTY AND FALL ACTIVITIES OOB only with supervision THERAPIES: - Dietary and Nutrition Adequate Nutrition. Nutritional Education. Nutritional Supplements. - Occupational Therapy Cognitive Retraining. Evaluate and Treat. Adaptive Equipment. Transfer Training. UE Strengthening. AD L Training. Visual Perceptual Training. - Speech Therapy Cognitive Training. Expressive Language Skills. Memory Strategies. Receptive Language Skills. Speech Intelligibility Training. - Physical Therapy Evaluate and Treat. Gait Training. Transfer Training. Balance Training. Mobility Training. HUEY william. PHYSICAL EXAM - Gen Alert and awake Lying in bed No apparent distress Oriented to: person, time, and place - Skin No skin breakdown. No abnormalities - Eyes No abnormalities - ENMT No abnormalities - Neck No abnormalities - CVS RRR - Chest No abnormalities - Resp Clear to auscultation - Abd Soft - GI Non distended Deferred - No abnormalities - Ext No significant edema - MSK 4+/5 weakness in both lower extremities. - Neuro No focal deficits - Psych No abnormalities ASSESSMENT: Pt. is a 80 yo Right-handed male.On 01/07/2021 he was admitted to [facility] with diagnosis MULTIPLE MYELOMA.His impairment category is Medically Complex Conditions 17 - Neoplasms (17.2).Pre-morbidly, Pt. was independent/mod-I in Locomotion, Social Cognition, Safety Awareness, Transfers Control, and Balance; and he had good Endurance, Self-Care, Communication, and Sphincter Control.Currently, he has deficits of Locomotion, Balance, Safety Awareness, Transfers Control, Self-Care, Sphincter Control, and Endurance.Pt. is now referred to [facility] for acute in-patient rehabilit ation in order to maximize patient's functional independence in activities of daily living, strength, ROM, and mobility.- Rehab Goal Patient has realistic goal of being discharged at assistance level 7-Ind to reside at Home with Fami ly/Relatives. MDM/PLAN: - Physical Therapy Gait dysfunction - to improve, our physical therapists will perform initial evaluation of pt's statu s upon admission and devise an individualized program for Gait Training, and Wheel Chair mobility Inability to transfer - to improve, our physical therapists will perform initial evaluation of pt's status upon admission and devise an individualized program for Bed mobility Need for home safety evaluation - to improve, our physical therapists will perform initial evaluatio n of pt's status upon admission and devise an individualized program for Home Evaluation Need in caregiver upon discharge - to improve, our physical therapists will perform initial evaluati on of pt's status upon admission and devise an individualized program for Caregiver Training New precaution - to improve, our physical therapists will perform initial evaluation of pt's status upon admission and devise an individualized program for Patient precaution education Edema - to improve, our physical therapists will perform initial evaluation of pt's status upon admi ssion and devise an individualized program for Elevation Training, and Lymphedema Therapy Poor balance - to improve, our physical therapists will perform initial evaluation of pt's status up on admission and devise an individualized program for Balance Training Poor endurance - to improve, our physical therapists will perform initial evaluation of pt's status upon admission and devise an individualized program for Endurance Training Weakness - to improve, our physical therapists will perform initial evaluation of pt's status upon a dmission and devise an individualized program for Aquatic Therapy, Neuromuscular Reeducation, and Str engthening Achieving independence - to improve, our physical therapists will perform initial evaluation of pt's status upon admission and devise an individualized program for Community Reintegration Activities - Occupational Therapy ADL deficits - to improve, our occupation therapists will perform initial evaluation of pt's status upon admission and devise an individualized program for Bathing, Bed mobility, Community Reintegratio n, Cooking, Dressing, Eating, Fine Motor Skills, Grooming, Homemaking, Kitchen Mobility, Laundry, Pat ient Education, Safety Awareness, Splinting - Positioning, Transfers(Toilet, Tub, Shower), and Wheel Chair Management Need for child care coordinator - to improve, our occupation therapists will perform initial evaluation of pt's status upon admission and devise an individualized program for Caregiver Training Weakness - to improve, our occupation therapists will perform initial evaluation of pt's status upon admission and devise an individualized program for Aquatic Therapy, Balance, Endurance, UE ROM, and UE strengthening - Other See attached MAR (Medication Administration Record) - Diet Type Continue Regular - Diet - Liquid Texture Continue Regular - Tube Feed Continue N/A - Fall Precaution SAFTY AND FALL - Diet - Solid Texture Continue Regular - Shower allowing shower FUNCTIONAL STATUS: UPDATED AT WEEKLY TEAM CONFERENCE - Bladder Same accident frequency: 7-Ind - No accidents in the past 7 days - Bowel Same accident frequency: 7-Ind - No accidents in the past 7 days - Walking Same score based on distance walked: 0(N/A) Same score based on distance walked: 1(<=50ft) - Wheelchair Same score based on distance traveled: 0(N/A) FUNCTIONAL STATUS: - Self-Care A. Eating Ind B. Grooming sup C. Bathing Marisol D. Dressing - Upper Marisol E. Dressing - Lower modA F. Toileting Marisol - Sphincter Control G. Bladder control sup H. Bowel control sup - Transfers Control I. Bed/Chair/Wheelchair Mraisol J. Toilet Marisol K. Tub/Shower Marisol - Locomotion L. Walk/Wheelchair (B) modA M. Stairs ADNO - Communication N. Comprehension (B) sup O. Expression (B) sup - Social Cognition P. Social Interaction Sofia Q. Problem Solving sup R. Memory sup - Endurance Fair - Balance Fair - Safety Awareness Fair QI SCORES: - Self-Care A. Eating 03-Partial/moderate assistance B. Oral hygiene 03-Partial/moderate assistance C. Toileting hygiene 03-Partial/moderate assistance E. Shower/bathe self 03-Partial/moderate assistance F. Upper body dressing 04-Supervision or touching assistance G. Lower body dressing 03-Partial/moderate assistance H. Putting on/taking off footwear 88-Not attempted due to medical condition or safety concerns - Mobility A. Roll left and right 03-Partial/moderate assistance B. Sit to lying 04-Supervision or touching assistance C. Lying to sitting on side of bed 04-Supervision or touching assistance D. Sit to stand 03-Partial/moderate assistance E. Chair/[id number] transfer 03-Partial/moderate assistance F. Toilet transfer 03-Partial/moderate assistance G. Car transfer 88-Not attempted due to medical condition or safety concerns I. Walk 10 feet 03-Partial/moderate assistance J. Walk 50 feet with two turns 88-Not attempted due to medical condition or safety concerns K. Walk 150 feet 88-Not attempted due to medical condition or safety concerns L. Walking 10 feet on uneven surfaces 88-Not attempted due to medical condition or safety concerns M. 1 step (curb) 88-Not attempted due to medical condition or safety concerns N. 4 steps 88-Not attempted due to medical condition or safety concerns O. 12 steps 88-Not attempted due to medical condition or safety concerns P. Picking up object 88-Not attempted due to medical condition or safety concerns R. Wheel 50 feet with two turns 88-Not attempted due to medical condition or safety concerns S. Wheel 150 feet 88-Not attempted due to medical condition or safety concerns - Bladder and Bowel Bladder continence Bowel continence - Endurance Fair - Balance Fair - Safety Awareness Fair CURRENT [facility] DEFICITS: Self-Care, Mobility, Endurance, Balance, and Safety Awareness SIGNATURE PANEL: (CDT)
[2021-01-16] MEDS: TAMSULOSIN 0.4 MG SR CAP PO SCH (21:40)
[2021-01-16] MEDS: MELATONIN 3 MG TABLET PO PRN (21:43)
[2021-01-17] MEDS: METOPROLOL XL 25 MG TAB PO SCH ×2 (05:28→17:02)
[2021-01-17] MEDS: PANTOPRAZOLE 40MG TABLET PO SCH (05:29)
[2021-01-17] MEDS: TRAMADOL HCL 50 MG TAB PO PRN ×2 (08:20→20:53)
[2021-01-17] MEDS: OCUVITE (VIT A,C & E/LUTEIN/MINERAL) TABLET PO SCH ×2 (08:22→20:53)
[2021-01-17] MEDS: APIXABAN 2.5 MG TABLET PO SCH ×2 (08:22→20:52)
[2021-01-17] MEDS: AMLODIPINE 10 MG TAB PO SCH (08:22)
[2021-01-17] MEDS: THIAMINE HCL 100 MG TABLET PO SCH (08:22)
[2021-01-17] MEDS: FENOFIBRATE 160 MG TAB PO SCH (08:23)
[2021-01-17] MEDS: CYANOCOBALAMIN 1,000 MCG TAB PO SCH (08:23)
[2021-01-17] MEDS: ASPIRIN 81 MG CHEWABLE TABLET PO SCH (08:23)
[2021-01-17] MEDS: MONTELUKAST 10 MG TAB PO SCH (08:23)
[2021-01-17] MEDS: ENSURE HIGH PROTEIN 237 ML CAN PO SCH ×2 (08:23→20:00)
[2021-01-17] MEDS: GABAPENTIN 300 MG CAP PO SCH ×2 (08:23→20:52)
[2021-01-17] MEDS: OXYBUTYNIN CHLORIDE 5 MG TAB PO SCH (08:23)
[2021-01-17] MEDS: ACYCLOVIR 400 MG TABLET PO SCH ×2 (08:23→20:52)
[2021-01-17] MEDS: CRANBERRY EXTRACT 400 MG CAPSULE PO SCH ×2 (08:54→20:00)
[2021-01-17] MEDS: LIDOCAINE 4% PATCH TOP SCH (09:13)
--- NOTE | 2021-01-17 17:01 | R.PN ---
PROGRESS NOTES ENCOUNTER DATE AND TIME: 01/17/2021 16:58 (CDT) NAME SAMMIE SLATER DATE OF : 1940 DATE OF ADMISSION: 01/12/2021 20:04 (CDT) MULTIPLE MYELOMACHIEF COMPLAINT: Debility and multiple myeloma SUBJECTIVE: Pt denied any depression. Pt denied any Shortness of Breath. Ambulated 1000' with standby assistance using a rolling walker. Up and down 12 steps with contact gua rd assistance. Hgb is mildly low at 9.2, prealbumin is mildly low at 16.7, UA shows 1+ esterase, 2+ blood, 5-10 WBCs . VITAL SIGNS Temperature: 98.4 F SBP/DBP: 151/73 Pulse: 60 Resp: 16 MEDICATION ALLERGIES: DAPTOMYCIN OXYCODONE ZOLPIDEM ENVIRONMENTAL ALLERGIES: - Substance Allergies None Known - Other Allergies None Known NURSING: - Shower allowing shower PRECAUTIONS: - Fall Precaution SAFTY AND FALL ACTIVITIES OOB only with supervision THERAPIES: - Dietary and Nutrition Adequate Nutrition. Nutritional Education. Nutritional Supplements. - Occupational Therapy Cognitive Retraining. Evaluate and Treat. Adaptive Equipment. Transfer Training. UE Strengthening. AD L Training. Visual Perceptual Training. - Speech Therapy Cognitive Training. Expressive Language Skills. Memory Strategies. Receptive Language Skills. Speech Intelligibility Training. - Physical Therapy Evaluate and Treat. Gait Training. Transfer Training. Balance Training. Mobility Training. HUEY william. PHYSICAL EXAM - Gen Alert and awake Lying in bed No apparent distress Oriented to: person, time, and place - Skin No skin breakdown. No abnormalities - Eyes No abnormalities - ENMT No abnormalities - Neck No abnormalities - CVS RRR - Chest No abnormalities - Resp Clear to auscultation - Abd Soft - GI Non distended Deferred - No abnormalities - Ext No significant edema - MSK 4+/5 weakness in both lower extremities. - Neuro No focal deficits - Psych No abnormalities ASSESSMENT: Pt. is a 80 yo Right-handed male.On 01/07/2021 he was admitted to [facility] with diagnosis MULTIPLE MYELOMA.His impairment category is Medically Complex Conditions 17 - Neoplasms (17.2).Pre-morbidly, Pt. was independent/mod-I in Locomotion, Social Cognition, Safety Awareness, Transfers Control, and Balance; and he had good Endurance, Self-Care, Communication, and Sphincter Control.Currently, he has deficits of Locomotion, Balance, Safety Awareness, Transfers Control, Self-Care, Sphincter Control, and Endurance.Pt. is now referred to [facility] for acute in-patient rehabilit ation in order to maximize patient's functional independence in activities of daily living, strength, ROM, and mobility.- Rehab Goal Patient has realistic goal of being discharged at assistance level 7-Ind to reside at Home with Fami ly/Relatives. MDM/PLAN: - Physical Therapy Gait dysfunction - to improve, our physical therapists will perform initial evaluation of pt's statu s upon admission and devise an individualized program for Gait Training, and Wheel Chair mobility Inability to transfer - to improve, our physical therapists will perform initial evaluation of pt's status upon admission and devise an individualized program for Bed mobility Need for home safety evaluation - to improve, our physical therapists will perform initial evaluatio n of pt's status upon admission and devise an individualized program for Home Evaluation Need in caregiver upon discharge - to improve, our physical therapists will perform initial evaluati on of pt's status upon admission and devise an individualized program for Caregiver Training New precaution - to improve, our physical therapists will perform initial evaluation of pt's status upon admission and devise an individualized program for Patient precaution education Edema - to improve, our physical therapists will perform initial evaluation of pt's status upon admi ssion and devise an individualized program for Elevation Training, and Lymphedema Therapy Poor balance - to improve, our physical therapists will perform initial evaluation of pt's status up on admission and devise an individualized program for Balance Training Poor endurance - to improve, our physical therapists will perform initial evaluation of pt's status upon admission and devise an individualized program for Endurance Training Weakness - to improve, our physical therapists will perform initial evaluation of pt's status upon a dmission and devise an individualized program for Aquatic Therapy, Neuromuscular Reeducation, and Str engthening Achieving independence - to improve, our physical therapists will perform initial evaluation of pt's status upon admission and devise an individualized program for Community Reintegration Activities - Occupational Therapy ADL deficits - to improve, our occupation therapists will perform initial evaluation of pt's status upon admission and devise an individualized program for Bathing, Bed mobility, Community Reintegratio n, Cooking, Dressing, Eating, Fine Motor Skills, Grooming, Homemaking, Kitchen Mobility, Laundry, Pat ient Education, Safety Awareness, Splinting - Positioning, Transfers(Toilet, Tub, Shower), and Wheel Chair Management Need for respiratory care faculty - to improve, our occupation therapists will perform initial evaluation of pt's status upon admission and devise an individualized program for Caregiver Training Weakness - to improve, our occupation therapists will perform initial evaluation of pt's status upon admission and devise an individualized program for Aquatic Therapy, Balance, Endurance, UE ROM, and UE strengthening - Other See attached MAR (Medication Administration Record) - Diet Type Continue Regular - Diet - Liquid Texture Continue Regular - Tube Feed Continue N/A - Fall Precaution SAFTY AND FALL - Diet - Solid Texture Continue Regular - Shower allowing shower FUNCTIONAL STATUS: UPDATED AT WEEKLY TEAM CONFERENCE - Bladder Same accident frequency: 7-Ind - No accidents in the past 7 days - Bowel Same accident frequency: 7-Ind - No accidents in the past 7 days - Walking Same score based on distance walked: 0(N/A) Same score based on distance walked: 1(<=50ft) - Wheelchair Same score based on distance traveled: 0(N/A) FUNCTIONAL STATUS: - Self-Care A. Eating Ind B. Grooming sup C. Bathing Marisol D. Dressing - Upper Marisol E. Dressing - Lower modA F. Toileting Marisol - Sphincter Control G. Bladder control sup H. Bowel control sup - Transfers Control I. Bed/Chair/Wheelchair Marisol J. Toilet Marisol K. Tub/Shower Marisol - Locomotion L. Walk/Wheelchair (B) modA M. Stairs ADNO - Communication N. Comprehension (B) sup O. Expression (B) sup - Social Cognition P. Social Interaction Sofia Q. Problem Solving sup R. Memory sup - Endurance Fair - Balance Fair - Safety Awareness Fair QI SCORES: - Self-Care A. Eating 03-Partial/moderate assistance B. Oral hygiene 03-Partial/moderate assistance C. Toileting hygiene 03-Partial/moderate assistance E. Shower/bathe self 03-Partial/moderate assistance F. Upper body dressing 04-Supervision or touching assistance G. Lower body dressing 03-Partial/moderate assistance H. Putting on/taking off footwear 88-Not attempted due to medical condition or safety concerns - Mobility A. Roll left and right 03-Partial/moderate assistance B. Sit to lying 04-Supervision or touching assistance C. Lying to sitting on side of bed 04-Supervision or touching assistance D. Sit to stand 03-Partial/moderate assistance E. Chair/[id number]-nhlgu transfer 03-Partial/moderate assistance F. Toilet transfer 03-Partial/moderate assistance G. Car transfer 88-Not attempted due to medical condition or safety concerns I. Walk 10 feet 03-Partial/moderate assistance J. Walk 50 feet with two turns 88-Not attempted due to medical condition or safety concerns K. Walk 150 feet 88-Not attempted due to medical condition or safety concerns L. Walking 10 feet on uneven surfaces 88-Not attempted due to medical condition or safety concerns M. 1 step (curb) 88-Not attempted due to medical condition or safety concerns N. 4 steps 88-Not attempted due to medical condition or safety concerns O. 12 steps 88-Not attempted due to medical condition or safety concerns P. Picking up object 88-Not attempted due to medical condition or safety concerns R. Wheel 50 feet with two turns 88-Not attempted due to medical condition or safety concerns S. Wheel 150 feet 88-Not attempted due to medical condition or safety concerns - Bladder and Bowel Bladder continence Bowel continence - Endurance Fair - Balance Fair - Safety Awareness Fair CURRENT [facility]. DEFICITS: Self-Care, Mobility, Endurance, Balance, and Safety Awareness SIGNATURE PANEL: (CDT)
[2021-01-17] MEDS: TAMSULOSIN 0.4 MG SR CAP PO SCH (20:52)
[2021-01-17] MEDS: MELATONIN 3 MG TABLET PO PRN (20:53)
[2021-01-18] MEDS: METOPROLOL XL 25 MG TAB PO SCH ×2 (04:59→16:59)
[2021-01-18 06:06] LABS: Absolute Lymphocytes (CBC) 3.8 K/uL (0.7-4.9); Basophils % 0.2 % (0-1.3); Hematocrit 24.5 % (39.6-49.0); Lymphocytes % 45.7 % (15.3-44.8); MPV 9.2 fL (7.6-11.3); RBC Red Blood Cell Count 2.48 M/uL (4.33-5.43)
[2021-01-18] MEDS: PANTOPRAZOLE 40MG TABLET PO SCH (06:23)
[2021-01-18 06:37] LABS: Albumin 2.6 g/dL (3.4-5.0); Magnesium 1.9 mg/dL (1.8-2.4); Potassium 4.3 mmol/L (3.5-5.1)
[2021-01-18] MEDS: LIDOCAINE 4% PATCH TOP SCH (07:05)
[2021-01-18 07:30] LABS: Blood Morphology Comment NOT SEEN (NOT SEEN); White Blood Cell Scan OK (OK)
[2021-01-18 07:31] LABS: Platelet Estimate ADEQ
[2021-01-18] MEDS: ENSURE HIGH PROTEIN 237 ML CAN PO SCH ×2 (07:52→20:00)
[2021-01-18] MEDS: TRAMADOL HCL 50 MG TAB PO PRN ×2 (07:53→21:48)
[2021-01-18] MEDS: ASPIRIN 81 MG CHEWABLE TABLET PO SCH (07:54)
[2021-01-18] MEDS: MONTELUKAST 10 MG TAB PO SCH (07:54)
[2021-01-18] MEDS: OCUVITE (VIT A,C & E/LUTEIN/MINERAL) TABLET PO SCH ×2 (07:54→21:47)
[2021-01-18] MEDS: GABAPENTIN 300 MG CAP PO SCH ×2 (07:55→21:44)
[2021-01-18] MEDS: CRANBERRY EXTRACT 400 MG CAPSULE PO SCH ×2 (07:55→20:00)
[2021-01-18] MEDS: FENOFIBRATE 160 MG TAB PO SCH (07:55)
[2021-01-18] MEDS: OXYBUTYNIN CHLORIDE 5 MG TAB PO SCH (07:55)
[2021-01-18] MEDS: ACYCLOVIR 400 MG TABLET PO SCH ×2 (07:55→21:47)
[2021-01-18] MEDS: APIXABAN 2.5 MG TABLET PO SCH ×2 (07:55→21:47)
[2021-01-18] MEDS: AMLODIPINE 10 MG TAB PO SCH (07:55)
[2021-01-18] MEDS: CYANOCOBALAMIN 1,000 MCG TAB PO SCH (07:55)
[2021-01-18] MEDS: THIAMINE HCL 100 MG TABLET PO SCH (07:55)
--- NOTE | 2021-01-18 19:48 | R.PN ---
PROGRESS NOTES ENCOUNTER DATE AND TIME: 01/18/2021 19:43 (CDT) NAME SAMMIE SLATER DATE OF : 1940 DATE OF ADMISSION: 01/12/2021 20:04 (CDT) MULTIPLE MYELOMACHIEF COMPLAINT: Debility and multiple myeloma SUBJECTIVE: Pt denied any depression. Pt denied any Shortness of Breath. Ambulated 1020' with independence using a rolling walker. Up and down 12 steps with contact guard ass istance. Wheelchair mobilization 250' with independence. Hgb is mildly low at 9.2, prealbumin is mildly low at 16.7, UA shows 1+ esterase, 2+ blood, 5-10 WBCs . VITAL SIGNS Temperature: 97.2 F SBP/DBP: 148/70 Pulse: 67 Resp: 16 MEDICATION ALLERGIES: DAPTOMYCIN OXYCODONE ZOLPIDEM ENVIRONMENTAL ALLERGIES: - Substance Allergies None Known - Other Allergies None Known NURSING: - Shower allowing shower PRECAUTIONS: - Fall Precaution SAFTY AND FALL ACTIVITIES OOB only with supervision THERAPIES: - Dietary and Nutrition Adequate Nutrition. Nutritional Education. Nutritional Supplements. - Occupational Therapy Cognitive Retraining. Evaluate and Treat. Adaptive Equipment. Transfer Training. UE Strengthening. AD L Training. Visual Perceptual Training. - Speech Therapy Cognitive Training. Expressive Language Skills. Memory Strategies. Receptive Language Skills. Speech Intelligibility Training. - Physical Therapy Evaluate and Treat. Gait Training. Transfer Training. Balance Training. Mobility Training. HUEY william. PHYSICAL EXAM - Gen Alert and awake Lying in bed No apparent distress Oriented to: person, time, and place - Skin No skin breakdown. No abnormalities - Eyes No abnormalities - ENMT No abnormalities - Neck No abnormalities - CVS RRR - Chest No abnormalities - Resp Clear to auscultation - Abd Soft - GI Non distended Deferred - No abnormalities - Ext No significant edema - MSK 4+/5 weakness in both lower extremities. - Neuro No focal deficits - Psych No abnormalities ASSESSMENT: Pt. is a 80 yo Right-handed male.On 01/07/2021 he was admitted to [facility] with diagnosis MULTIPLE MYELOMA.His impairment category is Medically Complex Conditions 17 - Neoplasms (17.2).Pre-morbidly, Pt. was independent/mod-I in Locomotion, Social Cognition, Safety Awareness, Transfers Control, and Balance; and he had good Endurance, Self-Care, Communication, and Sphincter Control.Currently, he has deficits of Locomotion, Balance, Safety Awareness, Transfers Control, Self-Care, Sphincter Control, and Endurance.Pt. is now referred to [facility] for acute in-patient rehabilit ation in order to maximize patient's functional independence in activities of daily living, strength, ROM, and mobility.- Rehab Goal Patient has realistic goal of being discharged at assistance level 7-Ind to reside at Home with Fami ly/Relatives. MDM/PLAN: - Physical Therapy Gait dysfunction - to improve, our physical therapists will perform initial evaluation of pt's statu s upon admission and devise an individualized program for Gait Training, and Wheel Chair mobility Inability to transfer - to improve, our physical therapists will perform initial evaluation of pt's status upon admission and devise an individualized program for Bed mobility Need for home safety evaluation - to improve, our physical therapists will perform initial evaluatio n of pt's status upon admission and devise an individualized program for Home Evaluation Need in caregiver upon discharge - to improve, our physical therapists will perform initial evaluati on of pt's status upon admission and devise an individualized program for Caregiver Training New precaution - to improve, our physical therapists will perform initial evaluation of pt's status upon admission and devise an individualized program for Patient precaution education Edema - to improve, our physical therapists will perform initial evaluation of pt's status upon admi ssion and devise an individualized program for Elevation Training, and Lymphedema Therapy Poor balance - to improve, our physical therapists will perform initial evaluation of pt's status up on admission and devise an individualized program for Balance Training Poor endurance - to improve, our physical therapists will perform initial evaluation of pt's status upon admission and devise an individualized program for Endurance Training Weakness - to improve, our physical therapists will perform initial evaluation of pt's status upon a dmission and devise an individualized program for Aquatic Therapy, Neuromuscular Reeducation, and Str engthening Achieving independence - to improve, our physical therapists will perform initial evaluation of pt's status upon admission and devise an individualized program for Community Reintegration Activities - Occupational Therapy ADL deficits - to improve, our occupation therapists will perform initial evaluation of pt's status upon admission and devise an individualized program for Bathing, Bed mobility, Community Reintegratio n, Cooking, Dressing, Eating, Fine Motor Skills, Grooming, Homemaking, Kitchen Mobility, Laundry, Pat ient Education, Safety Awareness, Splinting - Positioning, Transfers(Toilet, Tub, Shower), and Wheel Chair Management Need for transitions rn care coordinator - to improve, our occupation therapists will perform initial evaluation of pt's status upon admission and devise an individualized program for Caregiver Training Weakness - to improve, our occupation therapists will perform initial evaluation of pt's status upon admission and devise an individualized program for Aquatic Therapy, Balance, Endurance, UE ROM, and UE strengthening - Other See attached MAR (Medication Administration Record) - Diet Type Continue Regular - Diet - Liquid Texture Continue Regular - Tube Feed Continue N/A - Fall Precaution SAFTY AND FALL - Diet - Solid Texture Continue Regular - Shower allowing shower FUNCTIONAL STATUS: UPDATED AT WEEKLY TEAM CONFERENCE - Bladder Same accident frequency: 7-Ind - No accidents in the past 7 days - Bowel Same accident frequency: 7-Ind - No accidents in the past 7 days - Walking Same score based on distance walked: 0(N/A) Same score based on distance walked: 1(<=50ft) - Wheelchair Same score based on distance traveled: 0(N/A) FUNCTIONAL STATUS: - Self-Care A. Eating Ind B. Grooming sup C. Bathing Marisol D. Dressing - Upper Marisol E. Dressing - Lower modA F. Toileting Marisol - Sphincter Control G. Bladder control sup H. Bowel control sup - Transfers Control I. Bed/Chair/Wheelchair Marisol J. Toilet Marisol K. Tub/Shower Marisol - Locomotion L. Walk/Wheelchair (B) modA M. Stairs ADNO - Communication N. Comprehension (B) sup O. Expression (B) sup - Social Cognition P. Social Interaction Sofia Q. Problem Solving sup R. Memory sup - Endurance Fair - Balance Fair - Safety Awareness Fair QI SCORES: - Self-Care A. Eating 03-Partial/moderate assistance B. Oral hygiene 03-Partial/moderate assistance C. Toileting hygiene 03-Partial/moderate assistance E. Shower/bathe self 03-Partial/moderate assistance F. Upper body dressing 04-Supervision or touching assistance G. Lower body dressing 03-Partial/moderate assistance H. Putting on/taking off footwear 88-Not attempted due to medical condition or safety concerns - Mobility A. Roll left and right 03-Partial/moderate assistance B. Sit to lying 04-Supervision or touching assistance C. Lying to sitting on side of bed 04-Supervision or touching assistance D. Sit to stand 03-Partial/moderate assistance E. Chair/hyv-ss-[id number] transfer 03-Partial/moderate assistance F. Toilet transfer 03-Partial/moderate assistance G. Car transfer 88-Not attempted due to medical condition or safety concerns I. Walk 10 feet 03-Partial/moderate assistance J. Walk 50 feet with two turns 88-Not attempted due to medical condition or safety concerns K. Walk 150 feet 88-Not attempted due to medical condition or safety concerns L. Walking 10 feet on uneven surfaces 88-Not attempted due to medical condition or safety concerns M. 1 step (curb) 88-Not attempted due to medical condition or safety concerns N. 4 steps 88-Not attempted due to medical condition or safety concerns O. 12 steps 88-Not attempted due to medical condition or safety concerns P. Picking up object 88-Not attempted due to medical condition or safety concerns R. Wheel 50 feet with two turns 88-Not attempted due to medical condition or safety concerns S. Wheel 150 feet 88-Not attempted due to medical condition or safety concerns - Bladder and Bowel Bladder continence Bowel continence - Endurance Fair - Balance Fair - Safety Awareness Fair CURRENT [facility]. DEFICITS: Self-Care, Mobility, Endurance, Balance, and Safety Awareness SIGNATURE PANEL: (CDT)
[2021-01-18] MEDS: TAMSULOSIN 0.4 MG SR CAP PO SCH (21:38)
[2021-01-19] MEDS: METOPROLOL XL 25 MG TAB PO SCH ×2 (05:14→18:00)
[2021-01-19] MEDS: ACYCLOVIR 400 MG TABLET PO SCH ×2 (07:02→19:45)
[2021-01-19] MEDS: LIDOCAINE 4% PATCH TOP SCH (07:02)
[2021-01-19] MEDS: OXYBUTYNIN CHLORIDE 5 MG TAB PO SCH (07:02)
[2021-01-19] MEDS: AMLODIPINE 10 MG TAB PO SCH (07:02)
[2021-01-19] MEDS: MONTELUKAST 10 MG TAB PO SCH (07:02)
[2021-01-19] MEDS: ASPIRIN 81 MG CHEWABLE TABLET PO SCH (07:02)
[2021-01-19] MEDS: APIXABAN 2.5 MG TABLET PO SCH ×2 (07:02→19:45)
[2021-01-19] MEDS: THIAMINE HCL 100 MG TABLET PO SCH (07:02)
[2021-01-19] MEDS: CYANOCOBALAMIN 1,000 MCG TAB PO SCH (07:02)
[2021-01-19] MEDS: PANTOPRAZOLE 40MG TABLET PO SCH (07:03)
[2021-01-19] MEDS: FENOFIBRATE 160 MG TAB PO SCH (07:03)
[2021-01-19] MEDS: GABAPENTIN 300 MG CAP PO SCH ×2 (07:03→19:45)
[2021-01-19] MEDS: CRANBERRY EXTRACT 400 MG CAPSULE PO SCH ×2 (07:04→19:46)
[2021-01-19] MEDS: OCUVITE (VIT A,C & E/LUTEIN/MINERAL) TABLET PO SCH ×2 (07:04→19:45)
[2021-01-19] MEDS: ENSURE HIGH PROTEIN 237 ML CAN PO SCH ×2 (07:04→19:47)
--- NOTE | 2021-01-19 10:03 | P.RH.PN ---
Estimated Length of Stay: 13 Expected Discharge Date: 01/24/21 Discharge Disposition Plan: Home Family Support: Yes Shelter Goal: Mobility, Transfers, Self Care Vital Signs: Last Vital Signs Temp 97.8 F 01/19/21 06:30 Pulse 67 01/19/21 07:02 Resp 18 01/19/21 06:30 BP 158/77 H 01/19/21 07:02 Pulse Ox 96 01/19/21 06:30 Laboratory: Laboratory Last Values WBC 8.40 K/uL (4.3-10.9) D 01/18/21 05:45 RBC 2.48 M/uL (4.33-5.43) L 01/18/21 05:45 Hgb 8.1 g/dL (13.6-17.9) L 01/18/21 05:45 Hct 24.5 % (39.6-49.0) L 01/18/21 05:45 MCV 99.0 fL (80-100) 01/18/21 05:45 MCH 32.8 pg (27.0-35.0) 01/18/21 05:45 MCHC 33.2 g/dL (32.0-36.0) 01/18/21 05:45 RDW 18.2 % (12.1-15.2) H 01/18/21 05:45 Plt Count 346 K/uL (152-406) 01/18/21 05:45 MPV 9.2 fL (7.6-11.3) 01/18/21 05:45 Neutrophils % 39.5 % (41.7-73.7) L 01/18/21 05:45 Lymphocytes % 45.7 % (15.3-44.8) H 01/18/21 05:45 Monocytes % 12.7 % (3.3-12.3) H 01/18/21 05:45 Eosinophils % 1.9 % (0-4.4) 01/18/21 05:45 Basophils % 0.2 % (0-1.3) 01/18/21 05:45 Absolute Neutrophils 3.3 K/uL (1.8-8.0) 01/18/21 05:45 Absolute Lymphocytes 3.8 K/uL (0.7-4.9) 01/18/21 05:45 Absolute Monocytes 1.1 K/uL (0.1-1.3) 01/18/21 05:45 Absolute Eosinophils 0.2 K/uL (0-0.5) 01/18/21 05:45 Absolute Basophils 0.0 K/uL (0-0.5) 01/18/21 05:45 Platelet Estimate Adeq 01/18/21 05:45 Morphology Comment Not seen (NOT SEEN) 01/18/21 05:45 Sodium 144 mmol/L (136-145) 01/18/21 05:45 Potassium 4.3 mmol/L (3.5-5.1) 01/18/21 05:45 Chloride 109 mmol/L (98-107) H 01/18/21 05:45 Carbon Dioxide 30 mmol/L (21-32) 01/18/21 05:45 BUN 32 mg/dL (7-18) H 01/18/21 05:45 Creatinine 1.18 mg/dL (0.55-1.3) 01/18/21 05:45 Estimated GFR 59 mL/min (=/>90) L 01/18/21 05:45 Glucose 96 mg/dL (74-106) 01/18/21 05:45 Calcium 8.5 mg/dL (8.5-10.1) 01/18/21 05:45 Magnesium 1.9 mg/dL (1.8-2.4) 01/18/21 05:45 Albumin 2.6 g/dL (3.4-5.0) L 01/18/21 05:45 Prealbumin 17.0 mg/dL (20-40) L 01/18/21 05:45 Urine Color Yellow (Yellow) 01/13/21 05:44 Urine Appearance Clear (Clear) 01/13/21 05:44 Urine pH 6.5 (5.0-7.0) 01/13/21 05:44 Ur Specific [place] 1.010 (1.005-1.030) 01/13/21 05:44 Glucose (UA)(Auto) Negative (Negative) 01/13/21 05:44 Urine Ketones Negative (Negative) 01/13/21 05:44 Urine Blood 2+ (Negative) H 01/13/21 05:44 Urine Nitrite Negative (Negative) 01/13/21 05:44 Urine Bilirubin Negative (Negative) 01/13/21 05:44 Urine Urobilinogen 0.2 mg/dL (0.2-1.0) 01/13/21 05:44 Ur Leukocyte Esterase 1+ (Negative) H 01/13/21 05:44 Urine RBC 5-10 /HPF (NONE SEEN) H 01/13/21 05:44 Urine WBC 5-10 /HPF (<5) H 01/13/21 05:44 Ur Squamous Epith Cells <5 /HPF (NONE SEEN) 01/13/21 05:44 Urine Bacteria <20 /HPF (NONE SEEN) 01/13/21 05:44 Urine Culture Reflexed Not needed 01/13/21 05:44 Urine Total Protein Trace (Negative) H 01/13/21 05:44 SARS-CoV-2 Rap RNA(RT-PCR) Negative (NEGATIVE) 01/12/21 20:25 Smear Scan Ok (OK) 01/18/21 05:45 Weight: 163 lb 12.8 oz Wound Present: No Closed Surgical Incision Present: No Negative Pressure Wound Therapy Present: No Physician Update: He is doing well with ADLs at standby assistance. Standby wiht transfers. 500' with standby, stairs contact guard assistance. Functional Improvement: Patient has met all short-term goals at this time, and is progressing well toward long-term goals. Patient has begun to show signs of slight impulsivity, due to improvement of self. Patient presents w/ good attitude toward therapy. Summary: Patient's care plan and longterm goals have been reviewed and revised as necessary. Please see the Rehabilitation Signature page for all necessary signatures.
[2021-01-19] MEDS: TRAMADOL HCL 50 MG TAB PO PRN (19:46)
[2021-01-19] MEDS: TAMSULOSIN 0.4 MG SR CAP PO SCH (19:46)
[2021-01-19] MEDS: MELATONIN 3 MG TABLET PO PRN (19:50)
[2021-01-20] MEDS: METOPROLOL XL 25 MG TAB PO SCH ×2 (05:15→18:02)
[2021-01-20 05:51] VITALS: BMI 24.5
[2021-01-20] MEDS: PANTOPRAZOLE 40MG TABLET PO SCH (06:47)
[2021-01-20] MEDS: TRAMADOL HCL 50 MG TAB PO PRN ×2 (06:50→19:30)
[2021-01-20] MEDS: FENOFIBRATE 160 MG TAB PO SCH (09:22)
[2021-01-20] MEDS: MONTELUKAST 10 MG TAB PO SCH (09:22)
[2021-01-20] MEDS: CYANOCOBALAMIN 1,000 MCG TAB PO SCH (09:22)
[2021-01-20] MEDS: GABAPENTIN 300 MG CAP PO SCH ×2 (09:22→19:30)
[2021-01-20] MEDS: LIDOCAINE 4% PATCH TOP SCH (09:22)
[2021-01-20] MEDS: ACYCLOVIR 400 MG TABLET PO SCH ×2 (09:22→19:30)
[2021-01-20] MEDS: APIXABAN 2.5 MG TABLET PO SCH ×2 (09:22→19:30)
[2021-01-20] MEDS: AMLODIPINE 10 MG TAB PO SCH (09:23)
[2021-01-20] MEDS: OXYBUTYNIN CHLORIDE 5 MG TAB PO SCH (09:23)
[2021-01-20] MEDS: ENSURE HIGH PROTEIN 237 ML CAN PO SCH ×2 (09:23→19:31)
[2021-01-20] MEDS: THIAMINE HCL 100 MG TABLET PO SCH (09:23)
[2021-01-20] MEDS: ASPIRIN 81 MG CHEWABLE TABLET PO SCH (09:23)
[2021-01-20] MEDS: OCUVITE (VIT A,C & E/LUTEIN/MINERAL) TABLET PO SCH ×2 (09:24→19:30)
[2021-01-20] MEDS ORDERED: ACETAMINOPHEN 500 MG TAB PO PRN (09:37)
[2021-01-20] MEDS: CRANBERRY EXTRACT 400 MG CAPSULE PO SCH ×2 (11:18→19:31)
[2021-01-20] MEDS: MELATONIN 3 MG TABLET PO PRN (19:29)
[2021-01-20] MEDS: TAMSULOSIN 0.4 MG SR CAP PO SCH (19:30)
[2021-01-21] MEDS: METOPROLOL XL 25 MG TAB PO SCH ×2 (05:13→18:30)
[2021-01-21] MEDS: PANTOPRAZOLE 40MG TABLET PO SCH (05:33)
[2021-01-21] MEDS: THIAMINE HCL 100 MG TABLET PO SCH (08:46)
[2021-01-21] MEDS: CYANOCOBALAMIN 1,000 MCG TAB PO SCH (08:47)
[2021-01-21] MEDS: GABAPENTIN 300 MG CAP PO SCH ×2 (08:48→19:13)
[2021-01-21] MEDS: ACYCLOVIR 400 MG TABLET PO SCH ×2 (08:49→19:13)
[2021-01-21] MEDS: APIXABAN 2.5 MG TABLET PO SCH ×2 (08:49→19:15)
[2021-01-21] MEDS: AMLODIPINE 10 MG TAB PO SCH (08:50)
[2021-01-21] MEDS: FENOFIBRATE 160 MG TAB PO SCH (08:54)
[2021-01-21] MEDS: ASPIRIN 81 MG CHEWABLE TABLET PO SCH (08:54)
[2021-01-21] MEDS: OCUVITE (VIT A,C & E/LUTEIN/MINERAL) TABLET PO SCH ×2 (08:55→19:13)
[2021-01-21] MEDS: OXYBUTYNIN CHLORIDE 5 MG TAB PO SCH (08:56)
[2021-01-21] MEDS: MONTELUKAST 10 MG TAB PO SCH (08:57)
[2021-01-21] MEDS: LIDOCAINE 4% PATCH TOP SCH (08:59)
[2021-01-21] MEDS: ENSURE HIGH PROTEIN 237 ML CAN PO SCH ×2 (09:02→19:15)
[2021-01-21] MEDS: CRANBERRY EXTRACT 400 MG CAPSULE PO SCH ×2 (09:20→19:13)
[2021-01-21] MEDS: TRAMADOL HCL 50 MG TAB PO PRN (19:15)
[2021-01-21] MEDS: TAMSULOSIN 0.4 MG SR CAP PO SCH (19:15)
[2021-01-21] MEDS: MELATONIN 3 MG TABLET PO PRN (19:16)
[2021-01-22] MEDS: PANTOPRAZOLE 40MG TABLET PO SCH (05:47)
[2021-01-22] MEDS: METOPROLOL XL 25 MG TAB PO SCH ×2 (05:47→17:19)
[2021-01-22] MEDS: TRAMADOL HCL 50 MG TAB PO PRN ×3 (07:54→20:02)
[2021-01-22] MEDS: ASPIRIN 81 MG CHEWABLE TABLET PO SCH (07:56)
[2021-01-22] MEDS: AMLODIPINE 10 MG TAB PO SCH (07:56)
[2021-01-22] MEDS: GABAPENTIN 300 MG CAP PO SCH ×2 (07:56→20:02)
[2021-01-22] MEDS: MONTELUKAST 10 MG TAB PO SCH (07:56)
[2021-01-22] MEDS: OCUVITE (VIT A,C & E/LUTEIN/MINERAL) TABLET PO SCH ×2 (07:56→20:01)
[2021-01-22] MEDS: OXYBUTYNIN CHLORIDE 5 MG TAB PO SCH (07:56)
[2021-01-22] MEDS: CYANOCOBALAMIN 1,000 MCG TAB PO SCH (07:57)
[2021-01-22] MEDS: FENOFIBRATE 160 MG TAB PO SCH (07:57)
[2021-01-22] MEDS: APIXABAN 2.5 MG TABLET PO SCH ×2 (07:57→20:01)
[2021-01-22] MEDS: THIAMINE HCL 100 MG TABLET PO SCH (07:57)
[2021-01-22] MEDS: ACYCLOVIR 400 MG TABLET PO SCH ×2 (07:57→20:01)
[2021-01-22] MEDS: ENSURE HIGH PROTEIN 237 ML CAN PO SCH ×2 (07:59→20:00)
[2021-01-22] MEDS: CRANBERRY EXTRACT 400 MG CAPSULE PO SCH ×3 (08:27→20:00)
[2021-01-22] MEDS: LIDOCAINE 4% PATCH TOP SCH (11:29)
[2021-01-22] MEDS ORDERED: LIDOCAINE 4% PATCH TOP ONE (14:00)
--- NOTE | 2021-01-22 18:22 | R.PN ---
PROGRESS NOTES ENCOUNTER DATE AND TIME: 01/22/2021 18:17 (CDT) NAME SAMMIE SLATER DATE OF : 1940 DATE OF ADMISSION: 01/12/2021 20:04 (CDT) MULTIPLE MYELOMACHIEF COMPLAINT: Debility and multiple myeloma SUBJECTIVE: Pt denied any depression. Pt denied any Shortness of Breath. Ambulated 500' with independence using a rolling walker. Up and down 12 steps with standby assistance . Wheelchair mobilization 250' with independence. Hgb is low at 8.1, prealbumin is mildly low at 17.0 UA shows 1+ esterase, 2+ blood, 5-10 WBCs. Cultur es show no growth. VITAL SIGNS Temperature: 97.4 F SBP/DBP: 140/72 Pulse: 63 Resp: 16 MEDICATION ALLERGIES: DAPTOMYCIN OXYCODONE ZOLPIDEM ENVIRONMENTAL ALLERGIES: - Substance Allergies None Known - Other Allergies None Known NURSING: - Shower allowing shower PRECAUTIONS: - Fall Precaution SAFTY AND FALL ACTIVITIES OOB only with supervision THERAPIES: - Dietary and Nutrition Adequate Nutrition. Nutritional Education. Nutritional Supplements. - Occupational Therapy Cognitive Retraining. Evaluate and Treat. Adaptive Equipment. Transfer Training. UE Strengthening. AD L Training. Visual Perceptual Training. - Speech Therapy Cognitive Training. Expressive Language Skills. Memory Strategies. Receptive Language Skills. Speech Intelligibility Training. - Physical Therapy Evaluate and Treat. Gait Training. Transfer Training. Balance Training. Mobility Training. LE Edita william. PHYSICAL EXAM - Gen Alert and awake Lying in bed No apparent distress Oriented to: person, time, and place - Skin No skin breakdown. No abnormalities - Eyes No abnormalities - ENMT No abnormalities - Neck No abnormalities - CVS RRR - Chest No abnormalities - Resp Clear to auscultation - Abd Soft - GI Non distended Deferred - No abnormalities - Ext No significant edema - MSK 4+/5 weakness in both lower extremities. - Neuro No focal deficits - Psych No abnormalities ASSESSMENT: Pt. is a 80 yo Right-handed male.On 01/07/2021 he was admitted to [facility] with diagnosis MULTIPLE MYELOMA.His impairment category is Medically Complex Conditions 17 - Neoplasms (17.2).Pre-morbidly, Pt. was independent/mod-I in Locomotion, Social Cognition, Safety Awareness, Transfers Control, and Balance; and he had good Endurance, Self-Care, Communication, and Sphincter Control.Currently, he has deficits of Locomotion, Balance, Safety Awareness, Transfers Control, Self-Care, Sphincter Control, and Endurance.Pt. is now referred to [facility] for acute in-patient rehabilit ation in order to maximize patient's functional independence in activities of daily living, strength, ROM, and mobility.- Rehab Goal Patient has realistic goal of being discharged at assistance level 7-Ind to reside at Home with Fami ly/Relatives. MDM/PLAN: - Physical Therapy Gait dysfunction - to improve, our physical therapists will perform initial evaluation of pt's statu s upon admission and devise an individualized program for Gait Training, and Wheel Chair mobility Inability to transfer - to improve, our physical therapists will perform initial evaluation of pt's status upon admission and devise an individualized program for Bed mobility Need for home safety evaluation - to improve, our physical therapists will perform initial evaluatio n of pt's status upon admission and devise an individualized program for Home Evaluation Need in caregiver upon discharge - to improve, our physical therapists will perform initial evaluati on of pt's status upon admission and devise an individualized program for Caregiver Training New precaution - to improve, our physical therapists will perform initial evaluation of pt's status upon admission and devise an individualized program for Patient precaution education Edema - to improve, our physical therapists will perform initial evaluation of pt's status upon admi ssion and devise an individualized program for Elevation Training, and Lymphedema Therapy Poor balance - to improve, our physical therapists will perform initial evaluation of pt's status up on admission and devise an individualized program for Balance Training Poor endurance - to improve, our physical therapists will perform initial evaluation of pt's status upon admission and devise an individualized program for Endurance Training Weakness - to improve, our physical therapists will perform initial evaluation of pt's status upon a dmission and devise an individualized program for Aquatic Therapy, Neuromuscular Reeducation, and Str engthening Achieving independence - to improve, our physical therapists will perform initial evaluation of pt's status upon admission and devise an individualized program for Community Reintegration Activities - Occupational Therapy ADL deficits - to improve, our occupation therapists will perform initial evaluation of pt's status upon admission and devise an individualized program for Bathing, Bed mobility, Community Reintegratio n, Cooking, Dressing, Eating, Fine Motor Skills, Grooming, Homemaking, Kitchen Mobility, Laundry, Pat ient Education, Safety Awareness, Splinting - Positioning, Transfers(Toilet, Tub, Shower), and Wheel Chair Management Need for care team assistant - to improve, our occupation therapists will perform initial evaluation of pt's status upon admission and devise an individualized program for Caregiver Training Weakness - to improve, our occupation therapists will perform initial evaluation of pt's status upon admission and devise an individualized program for Aquatic Therapy, Balance, Endurance, UE ROM, and UE strengthening - Other See attached MAR (Medication Administration Record) - Diet Type Continue Regular - Diet - Liquid Texture Continue Regular - Tube Feed Continue N/A - Fall Precaution SAFTY AND FALL - Diet - Solid Texture Continue Regular - Shower allowing shower FUNCTIONAL STATUS: UPDATED AT WEEKLY TEAM CONFERENCE - Bladder Same accident frequency: 7-Ind - No accidents in the past 7 days - Bowel Same accident frequency: 7-Ind - No accidents in the past 7 days - Walking Same score based on distance walked: 0(N/A) Same score based on distance walked: 1(<=50ft) - Wheelchair Same score based on distance traveled: 0(N/A) FUNCTIONAL STATUS: - Self-Care A. Eating Ind B. Grooming sup C. Bathing Marisol D. Dressing - Upper Marisol E. Dressing - Lower modA F. Toileting Marisol - Sphincter Control G. Bladder control sup H. Bowel control sup - Transfers Control I. Bed/Chair/Wheelchair Marisol J. Toilet Marisol K. Tub/Shower Marisol - Locomotion L. Walk/Wheelchair (B) modA M. Stairs ADNO - Communication N. Comprehension (B) sup O. Expression (B) sup - Social Cognition P. Social Interaction Sofia Q. Problem Solving sup R. Memory sup - Endurance Fair - Balance Fair - Safety Awareness Fair QI SCORES: - Self-Care A. Eating 03-Partial/moderate assistance B. Oral hygiene 03-Partial/moderate assistance C. Toileting hygiene 03-Partial/moderate assistance E. Shower/bathe self 03-Partial/moderate assistance F. Upper body dressing 04-Supervision or touching assistance G. Lower body dressing 03-Partial/moderate assistance H. Putting on/taking off footwear 88-Not attempted due to medical condition or safety concerns - Mobility A. Roll left and right 03-Partial/moderate assistance B. Sit to lying 04-Supervision or touching assistance C. Lying to sitting on side of bed 04-Supervision or touching assistance D. Sit to stand 03-Partial/moderate assistance E. Chair/[id number] transfer 03-Partial/moderate assistance F. Toilet transfer 03-Partial/moderate assistance G. Car transfer 88-Not attempted due to medical condition or safety concerns I. Walk 10 feet 03-Partial/moderate assistance J. Walk 50 feet with two turns 88-Not attempted due to medical condition or safety concerns K. Walk 150 feet 88-Not attempted due to medical condition or safety concerns L. Walking 10 feet on uneven surfaces 88-Not attempted due to medical condition or safety concerns M. 1 step (curb) 88-Not attempted due to medical condition or safety concerns N. 4 steps 88-Not attempted due to medical condition or safety concerns O. 12 steps 88-Not attempted due to medical condition or safety concerns P. Picking up object 88-Not attempted due to medical condition or safety concerns R. Wheel 50 feet with two turns 88-Not attempted due to medical condition or safety concerns S. Wheel 150 feet 88-Not attempted due to medical condition or safety concerns - Bladder and Bowel Bladder continence Bowel continence - Endurance Fair - Balance Fair - Safety Awareness Fair CURRENT [facility]. DEFICITS: Self-Care, Mobility, Endurance, Balance, and Safety Awareness SIGNATURE PANEL: (CDT)
[2021-01-22] MEDS: TAMSULOSIN 0.4 MG SR CAP PO SCH (20:02)
[2021-01-22] MEDS: MELATONIN 3 MG TABLET PO PRN (20:03)
[2021-01-23] MEDS: METOPROLOL XL 25 MG TAB PO SCH ×2 (05:32→16:58)
[2021-01-23] MEDS: LIDOCAINE 4% PATCH TOP SCH (06:50)
[2021-01-23] MEDS: PANTOPRAZOLE 40MG TABLET PO SCH (06:50)
[2021-01-23] MEDS: OCUVITE (VIT A,C & E/LUTEIN/MINERAL) TABLET PO SCH ×2 (07:57→20:09)
[2021-01-23] MEDS: OXYBUTYNIN CHLORIDE 5 MG TAB PO SCH (07:58)
[2021-01-23] MEDS: FENOFIBRATE 160 MG TAB PO SCH (07:58)
[2021-01-23] MEDS: THIAMINE HCL 100 MG TABLET PO SCH (07:58)
[2021-01-23] MEDS: AMLODIPINE 10 MG TAB PO SCH (07:58)
[2021-01-23] MEDS: ASPIRIN 81 MG CHEWABLE TABLET PO SCH (07:58)
[2021-01-23] MEDS: ACYCLOVIR 400 MG TABLET PO SCH ×2 (07:59→20:11)
[2021-01-23] MEDS: GABAPENTIN 300 MG CAP PO SCH ×2 (07:59→20:10)
[2021-01-23] MEDS: MONTELUKAST 10 MG TAB PO SCH (07:59)
[2021-01-23] MEDS: APIXABAN 2.5 MG TABLET PO SCH ×2 (07:59→20:11)
[2021-01-23] MEDS: CYANOCOBALAMIN 1,000 MCG TAB PO SCH (07:59)
[2021-01-23] MEDS: ENSURE HIGH PROTEIN 237 ML CAN PO SCH ×2 (07:59→20:00)
[2021-01-23] MEDS: CRANBERRY EXTRACT 400 MG CAPSULE PO SCH ×2 (07:59→20:00)
[2021-01-23] MEDS: TRAMADOL HCL 50 MG TAB PO PRN ×2 (08:00→20:10)
--- NOTE | 2021-01-23 18:14 | R.PN ---
PROGRESS NOTES ENCOUNTER DATE AND TIME: 01/23/2021 18:11 (CDT) NAME SAMMIE SLATER DATE OF : 1940 DATE OF ADMISSION: 01/12/2021 20:04 (CDT) MULTIPLE MYELOMACHIEF COMPLAINT: Debility and multiple myeloma SUBJECTIVE: Pt denied any depression. Pt denied any Shortness of Breath. Ambulated 500' with modified independence using a rolling walker. Wheelchair mobilization 250' with i ndependence. Hgb is low at 8.1, prealbumin is mildly low at 17.0 UA shows 1+ esterase, 2+ blood, 5-10 WBCs. Cultur es show no growth. VITAL SIGNS Temperature: 97.6 F SBP/DBP: 131/69 Pulse: 63 Resp: 16 MEDICATION ALLERGIES: DAPTOMYCIN OXYCODONE ZOLPIDEM ENVIRONMENTAL ALLERGIES: - Substance Allergies None Known - Other Allergies None Known NURSING: - Shower allowing shower PRECAUTIONS: - Fall Precaution SAFTY AND FALL ACTIVITIES OOB only with supervision THERAPIES: - Dietary and Nutrition Adequate Nutrition. Nutritional Education. Nutritional Supplements. - Occupational Therapy Cognitive Retraining. Evaluate and Treat. Adaptive Equipment. Transfer Training. UE Strengthening. AD L Training. Visual Perceptual Training. - Speech Therapy Cognitive Training. Expressive Language Skills. Memory Strategies. Receptive Language Skills. Speech Intelligibility Training. - Physical Therapy Evaluate and Treat. Gait Training. Transfer Training. Balance Training. Mobility Training. HUEY william. PHYSICAL EXAM - Gen Alert and awake Lying in bed No apparent distress Oriented to: person, time, and place - Skin No skin breakdown. No abnormalities - Eyes No abnormalities - ENMT No abnormalities - Neck No abnormalities - CVS RRR - Chest No abnormalities - Resp Clear to auscultation - Abd Soft - GI Non distended Deferred - No abnormalities - Ext No significant edema - MSK 4+/5 weakness in both lower extremities. - Neuro No focal deficits - Psych No abnormalities ASSESSMENT: Pt. is a 80 yo Right-handed male.On 01/07/2021 he was admitted to [facility] with diagnosis MULTIPLE MYELOMA.His impairment category is Medically Complex Conditions 17 - Neoplasms (17.2).Pre-morbidly, Pt. was independent/mod-I in Locomotion, Social Cognition, Safety Awareness, Transfers Control, and Balance; and he had good Endurance, Self-Care, Communication, and Sphincter Control.Currently, he has deficits of Locomotion, Balance, Safety Awareness, Transfers Control, Self-Care, Sphincter Control, and Endurance.Pt. is now referred to [facility] for acute in-patient rehabilit ation in order to maximize patient's functional independence in activities of daily living, strength, ROM, and mobility.- Rehab Goal Patient has realistic goal of being discharged at assistance level 7-Ind to reside at Home with Fami ly/Relatives. MDM/PLAN: - Physical Therapy Gait dysfunction - to improve, our physical therapists will perform initial evaluation of pt's statu s upon admission and devise an individualized program for Gait Training, and Wheel Chair mobility Inability to transfer - to improve, our physical therapists will perform initial evaluation of pt's status upon admission and devise an individualized program for Bed mobility Need for home safety evaluation - to improve, our physical therapists will perform initial evaluatio n of pt's status upon admission and devise an individualized program for Home Evaluation Need in caregiver upon discharge - to improve, our physical therapists will perform initial evaluati on of pt's status upon admission and devise an individualized program for Caregiver Training New precaution - to improve, our physical therapists will perform initial evaluation of pt's status upon admission and devise an individualized program for Patient precaution education Edema - to improve, our physical therapists will perform initial evaluation of pt's status upon admi ssion and devise an individualized program for Elevation Training, and Lymphedema Therapy Poor balance - to improve, our physical therapists will perform initial evaluation of pt's status up on admission and devise an individualized program for Balance Training Poor endurance - to improve, our physical therapists will perform initial evaluation of pt's status upon admission and devise an individualized program for Endurance Training Weakness - to improve, our physical therapists will perform initial evaluation of pt's status upon a dmission and devise an individualized program for Aquatic Therapy, Neuromuscular Reeducation, and Str engthening Achieving independence - to improve, our physical therapists will perform initial evaluation of pt's status upon admission and devise an individualized program for Community Reintegration Activities - Occupational Therapy ADL deficits - to improve, our occupation therapists will perform initial evaluation of pt's status upon admission and devise an individualized program for Bathing, Bed mobility, Community Reintegratio n, Cooking, Dressing, Eating, Fine Motor Skills, Grooming, Homemaking, Kitchen Mobility, Laundry, Pat ient Education, Safety Awareness, Splinting - Positioning, Transfers(Toilet, Tub, Shower), and Wheel Chair Management Need for associate director career services - to improve, our occupation therapists will perform initial evaluation of pt's status upon admission and devise an individualized program for Caregiver Training Weakness - to improve, our occupation therapists will perform initial evaluation of pt's status upon admission and devise an individualized program for Aquatic Therapy, Balance, Endurance, UE ROM, and UE strengthening - Other See attached MAR (Medication Administration Record) - Diet Type Continue Regular - Diet - Liquid Texture Continue Regular - Tube Feed Continue N/A - Fall Precaution SAFTY AND FALL - Diet - Solid Texture Continue Regular - Shower allowing shower FUNCTIONAL STATUS: UPDATED AT WEEKLY TEAM CONFERENCE - Bladder Same accident frequency: 7-Ind - No accidents in the past 7 days - Bowel Same accident frequency: 7-Ind - No accidents in the past 7 days - Walking Same score based on distance walked: 0(N/A) Same score based on distance walked: 1(<=50ft) - Wheelchair Same score based on distance traveled: 0(N/A) FUNCTIONAL STATUS: - Self-Care A. Eating Ind B. Grooming sup C. Bathing Marisol D. Dressing - Upper Marisol E. Dressing - Lower modA F. Toileting Marisol - Sphincter Control G. Bladder control sup H. Bowel control sup - Transfers Control I. Bed/Chair/Wheelchair Marisol J. Toilet Marisol K. Tub/Shower Marisol - Locomotion L. Walk/Wheelchair (B) modA M. Stairs ADNO - Communication N. Comprehension (B) sup O. Expression (B) sup - Social Cognition P. Social Interaction Sofia Q. Problem Solving sup R. Memory sup - Endurance Fair - Balance Fair - Safety Awareness Fair QI SCORES: - Self-Care A. Eating 03-Partial/moderate assistance B. Oral hygiene 03-Partial/moderate assistance C. Toileting hygiene 03-Partial/moderate assistance E. Shower/bathe self 03-Partial/moderate assistance F. Upper body dressing 04-Supervision or touching assistance G. Lower body dressing 03-Partial/moderate assistance H. Putting on/taking off footwear 88-Not attempted due to medical condition or safety concerns - Mobility A. Roll left and right 03-Partial/moderate assistance B. Sit to lying 04-Supervision or touching assistance C. Lying to sitting on side of bed 04-Supervision or touching assistance D. Sit to stand 03-Partial/moderate assistance E. Chair/dlt-rv-xhkgs transfer 03-Partial/moderate assistance F. Toilet transfer 03-Partial/moderate assistance G. Car transfer 88-Not attempted due to medical condition or safety concerns I. Walk 10 feet 03-Partial/moderate assistance J. Walk 50 feet with two turns 88-Not attempted due to medical condition or safety concerns K. Walk 150 feet 88-Not attempted due to medical condition or safety concerns L. Walking 10 feet on uneven surfaces 88-Not attempted due to medical condition or safety concerns M. 1 step (curb) 88-Not attempted due to medical condition or safety concerns N. 4 steps 88-Not attempted due to medical condition or safety concerns O. 12 steps 88-Not attempted due to medical condition or safety concerns P. Picking up object 88-Not attempted due to medical condition or safety concerns R. Wheel 50 feet with two turns 88-Not attempted due to medical condition or safety concerns S. Wheel 150 feet 88-Not attempted due to medical condition or safety concerns - Bladder and Bowel Bladder continence Bowel continence - Endurance Fair - Balance Fair - Safety Awareness Fair CURRENT [facility]. DEFICITS: Self-Care, Mobility, Endurance, Balance, and Safety Awareness SIGNATURE PANEL: (CDT)
[2021-01-23] MEDS: MELATONIN 3 MG TABLET PO PRN (20:09)
[2021-01-23] MEDS: TAMSULOSIN 0.4 MG SR CAP PO SCH (20:09)
[2021-01-24] MEDS: METOPROLOL XL 25 MG TAB PO SCH (05:11)
[2021-01-24] MEDS: PANTOPRAZOLE 40MG TABLET PO SCH (06:36)
[2021-01-24 06:57] VITALS: BP 149/75; TEMP 98.1
[2021-01-24] MEDS: OCUVITE (VIT A,C & E/LUTEIN/MINERAL) TABLET PO SCH (07:47)
[2021-01-24] MEDS: OXYBUTYNIN CHLORIDE 5 MG TAB PO SCH (07:47)
[2021-01-24] MEDS: ENSURE HIGH PROTEIN 237 ML CAN PO SCH (07:47)
[2021-01-24] MEDS: FENOFIBRATE 160 MG TAB PO SCH (07:47)
[2021-01-24] MEDS: ASPIRIN 81 MG CHEWABLE TABLET PO SCH (07:47)
[2021-01-24] MEDS: AMLODIPINE 10 MG TAB PO SCH (07:49)
[2021-01-24] MEDS: APIXABAN 2.5 MG TABLET PO SCH (07:49)
[2021-01-24] MEDS: THIAMINE HCL 100 MG TABLET PO SCH (07:50)
[2021-01-24] MEDS: GABAPENTIN 300 MG CAP PO SCH (07:50)
[2021-01-24] MEDS: ACYCLOVIR 400 MG TABLET PO SCH (07:50)
[2021-01-24] MEDS: CYANOCOBALAMIN 1,000 MCG TAB PO SCH (07:50)
[2021-01-24] MEDS: MONTELUKAST 10 MG TAB PO SCH (07:50)
[2021-01-24] MEDS: TRAMADOL HCL 50 MG TAB PO PRN (07:54)
[2021-01-24] MEDS: CRANBERRY EXTRACT 400 MG CAPSULE PO SCH (07:54)
[2021-01-24] MEDS: LIDOCAINE 4% PATCH TOP SCH (11:13)
--- NOTE | 2021-01-24 17:26 | R.PN ---
PROGRESS NOTES ENCOUNTER DATE AND TIME: 01/24/2021 17:24 (CDT) NAME SAMMIE SLATER DATE OF : 1940 DATE OF ADMISSION: 01/12/2021 20:04 (CDT) MULTIPLE MYELOMACHIEF COMPLAINT: Debility and multiple myeloma SUBJECTIVE: Pt denied any depression. Pt denied any Shortness of Breath. Ambulated 500' with modified independence using a rolling walker. Wheelchair mobilization 250' with i ndependence. Hgb is low at 8.1, prealbumin is mildly low at 17.0 UA shows 1+ esterase, 2+ blood, 5-10 WBCs. Cultur es show no growth. VITAL SIGNS Temperature: 98.1 F SBP/DBP: 149/75 Pulse: 61 Resp: 16 MEDICATION ALLERGIES: DAPTOMYCIN OXYCODONE ZOLPIDEM ENVIRONMENTAL ALLERGIES: - Substance Allergies None Known - Other Allergies None Known NURSING: - Shower allowing shower PRECAUTIONS: - Fall Precaution SAFTY AND FALL ACTIVITIES OOB only with supervision THERAPIES: - Dietary and Nutrition Adequate Nutrition. Nutritional Education. Nutritional Supplements. - Occupational Therapy Cognitive Retraining. Evaluate and Treat. Adaptive Equipment. Transfer Training. UE Strengthening. AD L Training. Visual Perceptual Training. - Speech Therapy Cognitive Training. Expressive Language Skills. Memory Strategies. Receptive Language Skills. Speech Intelligibility Training. - Physical Therapy Evaluate and Treat. Gait Training. Transfer Training. Balance Training. Mobility Training. HUEY william. PHYSICAL EXAM - Gen Alert and awake Lying in bed No apparent distress Oriented to: person, time, and place - Skin No skin breakdown. No abnormalities - Eyes No abnormalities - ENMT No abnormalities - Neck No abnormalities - CVS RRR - Chest No abnormalities - Resp Clear to auscultation - Abd Soft - GI Non distended Deferred - No abnormalities - Ext No significant edema - MSK 4+/5 weakness in both lower extremities. - Neuro No focal deficits - Psych No abnormalities ASSESSMENT: Pt. is a 80 yo Right-handed male.On 01/07/2021 he was admitted to [facility] with diagnosis MULTIPLE MYELOMA.His impairment category is Medically Complex Conditions 17 - Neoplasms (17.2).Pre-morbidly, Pt. was independent/mod-I in Locomotion, Social Cognition, Safety Awareness, Transfers Control, and Balance; and he had good Endurance, Self-Care, Communication, and Sphincter Control.Currently, he has deficits of Locomotion, Balance, Safety Awareness, Transfers Control, Self-Care, Sphincter Control, and Endurance.Pt. is now referred to [facility] for acute in-patient rehabilit ation in order to maximize patient's functional independence in activities of daily living, strength, ROM, and mobility.- Rehab Goal Patient has realistic goal of being discharged at assistance level 7-Ind to reside at Home with Fami ly/Relatives. MDM/PLAN: - Physical Therapy Gait dysfunction - to improve, our physical therapists will perform initial evaluation of pt's statu s upon admission and devise an individualized program for Gait Training, and Wheel Chair mobility Inability to transfer - to improve, our physical therapists will perform initial evaluation of pt's status upon admission and devise an individualized program for Bed mobility Need for home safety evaluation - to improve, our physical therapists will perform initial evaluatio n of pt's status upon admission and devise an individualized program for Home Evaluation Need in caregiver upon discharge - to improve, our physical therapists will perform initial evaluati on of pt's status upon admission and devise an individualized program for Caregiver Training New precaution - to improve, our physical therapists will perform initial evaluation of pt's status upon admission and devise an individualized program for Patient precaution education Edema - to improve, our physical therapists will perform initial evaluation of pt's status upon admi ssion and devise an individualized program for Elevation Training, and Lymphedema Therapy Poor balance - to improve, our physical therapists will perform initial evaluation of pt's status up on admission and devise an individualized program for Balance Training Poor endurance - to improve, our physical therapists will perform initial evaluation of pt's status upon admission and devise an individualized program for Endurance Training Weakness - to improve, our physical therapists will perform initial evaluation of pt's status upon a dmission and devise an individualized program for Aquatic Therapy, Neuromuscular Reeducation, and Str engthening Achieving independence - to improve, our physical therapists will perform initial evaluation of pt's status upon admission and devise an individualized program for Community Reintegration Activities - Occupational Therapy ADL deficits - to improve, our occupation therapists will perform initial evaluation of pt's status upon admission and devise an individualized program for Bathing, Bed mobility, Community Reintegratio n, Cooking, Dressing, Eating, Fine Motor Skills, Grooming, Homemaking, Kitchen Mobility, Laundry, Pat ient Education, Safety Awareness, Splinting - Positioning, Transfers(Toilet, Tub, Shower), and Wheel Chair Management Need for clinical manager home care - to improve, our occupation therapists will perform initial evaluation of pt's status upon admission and devise an individualized program for Caregiver Training Weakness - to improve, our occupation therapists will perform initial evaluation of pt's status upon admission and devise an individualized program for Aquatic Therapy, Balance, Endurance, UE ROM, and UE strengthening - Other See attached MAR (Medication Administration Record) - Diet Type Continue Regular - Diet - Liquid Texture Continue Regular - Tube Feed Continue N/A - Fall Precaution SAFTY AND FALL - Diet - Solid Texture Continue Regular - Shower allowing shower FUNCTIONAL STATUS: UPDATED AT WEEKLY TEAM CONFERENCE - Bladder Same accident frequency: 7-Ind - No accidents in the past 7 days - Bowel Same accident frequency: 7-Ind - No accidents in the past 7 days - Walking Same score based on distance walked: 0(N/A) Same score based on distance walked: 1(<=50ft) - Wheelchair Same score based on distance traveled: 0(N/A) FUNCTIONAL STATUS: - Self-Care A. Eating Ind B. Grooming sup C. Bathing Marisol D. Dressing - Upper Marisol E. Dressing - Lower modA F. Toileting Marisol - Sphincter Control G. Bladder control sup H. Bowel control sup - Transfers Control I. Bed/Chair/Wheelchair Marisol J. Toilet Marisol K. Tub/Shower Marisol - Locomotion L. Walk/Wheelchair (B) modA M. Stairs ADNO - Communication N. Comprehension (B) sup O. Expression (B) sup - Social Cognition P. Social Interaction Sofia Q. Problem Solving sup R. Memory sup - Endurance Fair - Balance Fair - Safety Awareness Fair QI SCORES: - Self-Care A. Eating 03-Partial/moderate assistance B. Oral hygiene 03-Partial/moderate assistance C. Toileting hygiene 03-Partial/moderate assistance E. Shower/bathe self 03-Partial/moderate assistance F. Upper body dressing 04-Supervision or touching assistance G. Lower body dressing 03-Partial/moderate assistance H. Putting on/taking off footwear 88-Not attempted due to medical condition or safety concerns - Mobility A. Roll left and right 03-Partial/moderate assistance B. Sit to lying 04-Supervision or touching assistance C. Lying to sitting on side of bed 04-Supervision or touching assistance D. Sit to stand 03-Partial/moderate assistance E. Chair/qqs-ch-yhvhi transfer 03-Partial/moderate assistance F. Toilet transfer 03-Partial/moderate assistance G. Car transfer 88-Not attempted due to medical condition or safety concerns I. Walk 10 feet 03-Partial/moderate assistance J. Walk 50 feet with two turns 88-Not attempted due to medical condition or safety concerns K. Walk 150 feet 88-Not attempted due to medical condition or safety concerns L. Walking 10 feet on uneven surfaces 88-Not attempted due to medical condition or safety concerns M. 1 step (curb) 88-Not attempted due to medical condition or safety concerns N. 4 steps 88-Not attempted due to medical condition or safety concerns O. 12 steps 88-Not attempted due to medical condition or safety concerns P. Picking up object 88-Not attempted due to medical condition or safety concerns R. Wheel 50 feet with two turns 88-Not attempted due to medical condition or safety concerns S. Wheel 150 feet 88-Not attempted due to medical condition or safety concerns - Bladder and Bowel Bladder continence Bowel continence - Endurance Fair - Balance Fair - Safety Awareness Fair CURRENT PENDING SALE TO [facility]. DEFICITS: Self-Care, Mobility, Endurance, Balance, and Safety Awareness SIGNATURE PANEL: (CDT)
== END 2021-01-24 14:44 | disposition home health service (06) | DRG 948 ==
LOC: 5TH 20:04
PROVIDERS: ADMIT Psychiatry & Neurology Neurology with Special Qualifications in Child Neurology; ATTEND Psychiatry & Neurology Neurology with Special Qualifications in Child Neurology
DX: R53.81 Other malaise (principal); C90.00 Multiple myeloma not having achieved remission; K21.9 Gastro-esophageal reflux disease without esophagitis; G47.33 Obstructive sleep apnea (adult) (pediatric); I10 Essential (primary) hypertension; F32.9 Major depressive disorder, single episode, unspecified; Z20.822 Contact with and (suspected) exposure to COVID-19
CPT/HCPCS: 36415; 80048; 81001; 82040; 83735; 84134; 85025; 87086; 87088; 92523; 97110; 97116; 97127; 97161; 97530; 97542; U0003